=== PATIENT | female | born 1950 | race Caucasian/White ===

== ENCOUNTER 2025-07-14 10:52 | Outpatient (REF) | payer SELFPAY ==
--- OUTSIDE RECORDS SUMMARY | 2024-07-27 11:10 | XMS_ITS | Encounter Summary ---
Author Organization [facility] Address [address] [place] [address] Care Team Providers Care Meat Butcher Name Role Phone Sophy Calix MD Primary Care Provider + [phone] Encounter Details Date Type Department Care Team (Latest Contact Info) Description 07/27/2024 11:10 AM EDT Hospital Encounter TH HISTORIC ENCOUNTERS EASTERN CONVERSION ONLY Onel-Og Peña MD [address] [place] [id number] Leukemia, unspecified not having achieved remission (CMS/HCC V24, CMS/HCC V28) Social History Tobacco Use Types Packs/Day Years Used Date Smoking Tobacco: Never Smokeless Tobacco: Never Alcohol Use Standard Drinks/Week Comments Not Currently 0 (1 standard drink = 0.6 oz pur e alcohol) Interpersonal Safety Answer Date Record ed Physical Abuse 02/17/2025 Verbal Abuse 02/17/2025 Comments Unknown Sex and Gender Information Value Date Recorded Sex Assigned at Not on file Legal Sex Female 10:37 PM EST Gender Identity Not on file Sexual Orientation Not on file documented as of this encounter Plan of Treatment Not on file documented as of this encounter Procedures Procedure Name Priority Date/Time Associated Diagnosis Comments TISSUE EXAM Routine 08/02/2024 12:[address] BX ASP BONE MARROW Routine 07/27/2024 3:18 PM EDT Leukemia, unspecified not having achieved remission (CMS/HCC V24, CMS/HCC V28) documented in this encounter Results * Tissue exam (08/02/2024 12:00 AM EDT) Case Results A-E. Bone Marrow, aspiration, core biopsy, and clot: Mildly hypocellular bone marrow for patient age (10-20% overall cellularity) with maturing myeloid and erythroid precursors, a decreased myeloid:erythroid ratio, adequate numbers of megakaryocytes, and less than 1% blasts in a 300-cell aspirate differential. No discrete population of B lymphoblasts is identified by flow cytometry (low number of cells present for evaluation). See comment. Comment: This is a mildly hypocellular bone marrow with trilineage hematopoiesis and a reduced myeloid:erythroid ratio. Occasional abnormal cells are present (hypogranular and hyposegmented neutrophils, rare binucleated erythroid precursors, and occasional erythroid precursors with nuclear fragmentation) which account for less than 10% of the cells in each lineage. Few blasts are present. Flow cytometry shows virtually no CD19 positive B cells; most of the lymphocytes are T cells without diagnostic phenotypic aberrancy. Approximately 1% CD34 positive blasts are present. No discrete population of B lymphoblasts is identified. It is noted that the number of cells evaluated by flow cytometry is low (less than 5000 cells) which limits the sensitivity of flow cytometric evaluation. Reticulin staining shows no significant increase in reticulin stain fibers fibrosis (MF-0). 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 Although occasional abnormal erythroid and myeloid precursors are present, the morphologic changes (in isolation) are not sufficient to warrant a diagnosis of myeloid myelodysplastic syndrome. Other possible causes for the patient's macrocytic anemia and thrombocytopenia should be considered, including nutritional deficits, medication/toxin effects or other causes. No marrow infiltrative process is identified. Karyotype is pending, addendum to follow. CBC (06/24/2024): WBC 3.9 k/uL, Hemoglobin 10.9 g/dL, Hematocrit 35.1%, MCV 101.7 fL, RDW 15.6%, Platelets 128 k/uL. Differential: Neutrophils: 78.0%, Lymphs: 10.1%, Monos: 9.6%, Eos: 1.3%, Basos: 0.5%, Immature granulocytes: 0.5%. Bone marrow aspirate smear (Montez stain): Specimen quality: Adequate (scattered cellular marrow particles are present) Myeloid:Erythroid ratio: 0.6 (reduced). Myeloid maturation: A complete range of myeloid maturation is present. Rare hypogranular and hyposegmented neutrophils are noted. Erythroid maturation: A complete range of erythroid maturation is present. Few erythroid precursors with nuclear fragmentation and rare binucleated erythroid precursors are present. Megakaryocyte number and morphology: Megakaryocytes appear adequate in number and include a generally normal range of morphologic forms. Iron stain: Adequate storage iron is present (4+/6). Pathologic ring sideroblasts are not identified. Other findings: Scattered pigment containing macrophages are noted. 300 cell Differential count of aspirate: 0.7% Blasts 0.0% Promyelocytes 10.3% Myelocytes/metamyel ocytes 21.3% Neutrophils/bands 2.7% Monocytes 1.7% Eosinophils 0.3% Basophils 7.3% Lymphocytes 0.7% Plasma cells 55.0% Erythroid precursors Microscopic finding of bone marrow biopsy and clot (H and E, PAS): Specimen quality: Core: Small (1.3 cm) and partially crushed clot: Adequate (scattered cellular marrow particles are present Cellularity: Mildly hypocellular for patient age (approximately 10-20% overall cellularity) Myeloid maturation: A complete range of myeloid maturation is identified. No large aggregates of immature mononuclear cells are identified. Erythroid maturation: A complete range of erythroid maturation is identified. A portion of erythroid precursors appears increased. Megakaryocyte number and maturation: Megakaryocytes appear adequate in number and include rare small hypolobated forms (highlighted by PAS stain). Plasma cells: Few plasma cells are identified. No expansile aggregates of plasma cells are seen. Lymphocytes: No discrete lymphoid aggregates are identified. Reticulin stain: There is no significant increase in reticulin stain fibers (MF-0). Other findings: PAS Stain highlights megakaryocytes. Flow Cytometry The overall findings show no discrete population of UZ47-rvgewdzd B cells or plasma cells. Although there are approximately 1% NG73-rrwouywr blasts detected, there is and no discrete population of WW38-kvcdxrlq/CD19- positive lymphoid blasts detected. It is noted that the number of events evaluated is low (less than 5,000 cells per tube), which limits the sensitivity of this assay (i.e., not possible to identify minimal residual disease). Please note that myeloid disorders cannot be reliably excluded by flow cytometry. SPECIMEN: Bone marrow aspirate ([id number]) VIABILITY: 95.9% TOTAL CELL YIELD: 42.3 x10 6 /mL IMMUNOPHENOTYPIC FINDINGS: Lymphocytes are 7.9% of total. -T cells are 7.4% of total (94.3% of cells in lymphocyte gate) with no aberrant phenotype, CD4:CD8= 0.8. -A discrete population of CD19 positive B cells is not identified. -A discrete population of plasma cells is not identified. Granulocytes are 66.0% of total and show generally azure developer immunophenotypic maturation, Monocytic cells are 2.1% of total and show generally azure developer immunophenotypic maturation.. CD45 dim cells are 6.2% of total. CD34+ Blasts are not increased (approximately 1%). No discrete population of AP48-xyugmqwl/CD34- positive blasts is identified (low number of events evaluated). Antibodies (27 markers): CD2, CD3, CD4, CD5, CD7, CD8, CD10, CD11b, CD13, CD14, CD15, CD16, CD19, CD20, CD33, CD34, CD38, CD45, CD56, CD64, CD117, CD123, CD200, HLA-DR, [place], Lambda, TCR gamma-delta. This test was developed and its performance characteristics determined by [facility]. It has not been cleared or approved by U.S. Food and Drug Administration. The FDA does not require this test to go through premarket FDA review. This test is used for clinical purposes. It should not be regarded as investigational or for research. This laboratory is certified under the Clinical Laboratory Improvement Amendments of 1988 (CLIA) as qualified to perform high complexity clinical laboratory testing. Additional Testing (Addendum to follow): Conventional karyotype All special stains were performed with appropriate controls. Diego Warner M.D. , Pathologist (Case electronically signed 08 02 2024) SUPPLEMENTAL REPORT: E. This case was sent to [facility], [address] [facility], [place], [place], (CLIA #[id number]) for Cytogenetics studies. Their diagnosis is as follows: Cytogenetics Oncology Chromosome Analysis Karyotype: 46,XX[20] Interpretation: NORMAL FEMALE KARYOTYPE Cytogenetic analysis shows a normal female karyotype in all cells analyzed. Recommendation: Monitoring by cytogenetics studies is recommended, if clinically indicated. Comments: The clonal abnormalities, observed in a previous specimen, are not observed in the cells analyzed from the current specimen. Please refer to [facility] Results (below). Standard cytogenetic analysis may not detect subtle submicroscopic rearrangements and may not include metaphases from abnormal cell populations with low mitotic rates or present in low levels. Test Detail: Metaphases Counted: 20 Metaphases Analyzed: 20 Metaphases Karyotyped: 2 Culture Type: 24EB, 48EB, ONC Banding Technique: GTG Banding Resolution: 400 Electronic Signature Electronic Signature Dorita Michael M.S., Ph.D., [facility] (CC), [facility] Joby Barr M.D., Hematopathologist [facility]. [facility] (Full report on file) Diego Warner M.D. , Pathologist (Supplemental Report Signed 08 09 2024) Pre-Op/Clinical Diagnosis: *ALL IN REMISSION, COUGH, BACTEREMIA, TUBULAR ADENOMA, HYPOKALEMIA, FATIGUE, CHEMO INDUCED NEUTROPENIA, NAUSEA, NON-SMOKER, ANEMIA, NEOPLASTIC DISEASE, ABNORMAL GAIT, RE-STAGING Specimen and Site: A. MARROW, LEFT ILIAC-BIOPSY B. MARROW CLOT, LEFT ILIAC-ASPIRATION C. MARROW, LEFT ILIAC SLIDES-ASPIRATE D. MARROW FOR FLOW >16 markers, LEFT ILIAC E. MARROW FOR CYTOGENETICS, LEFT ILIAC Gross Description: A. Labeled left iliac bone . Received in formalin is a 1.5 x 0.2 cm hard, braun-red bone core, which is wrapped in paper and submitted in toto in one cassette, one piece, x2, following decalcification in Immun[facility]. B. Labeled left iliac bone marrow clot . Received in formalin is a 0.6 x 0.5 x <0.1 cm aggregate of red grumous tissue/blood, which is wrapped in paper and submitted in toto in one cassette, multiple pieces, x2 (which might fail processing). C. Labeled left iliac bone marrow aspirate smears . Five slides are prepared. One slide subsequently is stained for iron. Two slides are stained with Montez's giemsa. D. Labeled left iliac bone marrow aspirate for flow cytometry . Approximately 3ml of bone marrow aspirate is received in a purple top tube and submitted in toto to [facility], flow cytometry lab, [place], [place], for flow cytometric studies. Gross description only. E. Labeled left iliac bone marrow aspirate for cytogenetics . Approximately 3ml of bone marrow aspirate is received in a purple top tube and approximately 8ml of bone marrow aspirate is received in two green top tubes and submitted in toto to [facility], [place], [place], for cytogenetic studies. Gross description only. TS Physicians: SOPHY CALIX MD/[phone] ESTEVAN WOODS M.D./[id number]/ OG PEÑA MD/ / HISTORICAL TESTING LAB RESULTING AGENCY 08/02/2024 us Laboratory Results Historical MD LAB PATHOLOGY O RDERABLES Final Result HISTORICAL TESTING LAB RESULTING AGENCY * CT BX ASP BONE MARROW (07/27/2024 3:18 PM EDT) Anatomical Region Laterality Modality Computed Tomogra phy 07/27/2024 12:1 4 PM EDT Narrative 07/27/2024 3:18 PM EDT [facility] Diagnostic Imaging Department [address] [place] [id number] Patient: OLIVIA HARLEY /Age/Sex: 1950 - 74 - F Unit#: [id number] Location/Status: [facility] Mnemonic/Ordering Site: [facility] Ordering Physician: OG KAUR MD CT Bx Asp Bone Marrow - 07/27/24 - [id number] Report Status:Signed INDICATION: Leukemia PROCEDURE: Consent obtained for CT guided bone marrow biopsy under conscious sedation. prior relevant studies: PET/CT from July 27, 2024 MEDICATIONS: Local anesthesia: 5 cc of 1% buffered lidocaine administered subcutaneously. 5 cc of 0.25% bupivacaine administered along the periosteum. Sedation: Moderate intravenous sedation was initiated and maintained for 30 minutes while the patient was independently monitored by the radiology nurse under the supervision of the interventional radiologist. A total of 2 mg of Versed and 75 mcg of fentanyl administered during the procedure. Scanner: Soapets [address] Dose reduction technique: AEC (automated exposure control) Dose: total exam DLP 206 mGY per cm TECHNIQUE: Patient placed prone on the CT table and multiple axial images obtained through the pelvis. Appropriate area of the skin was marked, draped and prepped using maximum sterile barrier. Moderate sedation initiated followed by administration of local anesthetic. Under CT fluoroscopic guidance a 11-gauge coaxial needle was advanced into the posterior iliac bone. Bone marrow core biopsy performed followed by bone marrow aspiration. FINDINGS: Initial limited CT images of the pelvis demonstrate adequate percutaneous access into the posterior iliac bone. Images obtained during localization and needle positioning demonstrate coaxial needle positioned within the posterior iliac bone. SPECIMENS: Core sample placed within formalin. Bone marrow aspirate samples placed while within green and purple top tubes. IMPRESSION: CT-guided bone marrow core biopsy as well as bone marrow aspiration biopsy. Dictating Physician: ESTEVAN WOODS MD Electronically Signed by: ESTEVAN WOODS MD Dic Date/Time: 07/27/241516 Sign date/Time: 07/27/24 151 Procedure Note Estevan Woods MD - 08/24/2024 [facility] Diagnostic Imaging Department [address] [place] [address] Patient: OLIVIA HARLEY /Age/Sex: 1950 - 74 - F Unit#: [id number] Location/Status: [facility] Ordering Physician: OG KAUR MD CT Bx Asp Bone Marrow - 07/27/24 - [id number] Report Status:Signed INDICATION: Leukemia PROCEDURE: Consent obtained for CT guided bone marrow biopsy underconscious sedation. prior relevant studies: PET/CT from July 27, 2024 MEDICATIONS: Local anesthesia: 5 cc of 1% buffered lidocaine administeredsubcutaneously. 5 cc of 0.25% bupivacaine administered along the periosteum. Sedation: Moderate intravenous sedation was initiated and maintained for30 minutes while the patient was independently monitored by the radiologynurse under the supervision of the interventional radiologist. A total of 2 mgof Versed and 75 mcg of fentanyl administered during the procedure. Scanner: Soapets [address] Dose reduction technique: AEC (automated exposure control) Dose: total exam DLP 206 mGY per cm TECHNIQUE: Patient placed prone on the CT table and multiple axialimages obtained through the pelvis. Appropriate area of the skin was marked,draped and prepped using maximum sterile barrier. Moderate sedation initiatedfollowed by administration of local anesthetic. Under CT fluoroscopic guidance [id number] coaxial needle was advanced into the posterior iliac bone. Bone marrowcore biopsy performed followed by bone marrow aspiration. FINDINGS: Initial limited CT images of the pelvis demonstrate adequate percutaneous access into the posterior iliac bone. Images obtained during localization and needle positioning demonstratecoaxial needle positioned within the posterior iliac bone. SPECIMENS: Core sample placed within formalin. Bone marrow aspiratesamples placed while within green and purple top tubes. IMPRESSION: CT-guided bone marrow core biopsy as well as bone marrow aspirationbiopsy. Dictating Physician: ESTEVAN WOODS MD Electronically Signed by: ESTEVNA WOODS MD Dic Date/Time: 07/27/24 1517 Sign date/Time: 07/27/241517 Og Acuna MD IMG CT PROCEDURES F inal Result documented in this encounter Visit Diagnoses Diagnosis Leukemia, unspecified not having achieved remission ([facility] V24, [facility] V28) documented in this encounter Additional Health Concerns Infection Onset Date Last Indicated Resolved Time Respiratory Rule-Out 02/16/2025 02/16/2025 025 6:20 PM EDT COVID-19 Rule-Out 02/16/2025 02/16/2025 02/16/2025 6:20 PM EDT COVID-19 Rule-Out 05/09/2025 05/09/2025 05/09/2025 10:26 AM EDT Respiratory Rule-Out 05/09/2025 05/09/2025 025 10:26 AM EDT documented as of this encounter Care Teams Meat Butcher Relationship Specialty Start Date End Date Sophy Calix MD PCP - General 06/29/24 10/25/24 documented as of this encounter
--- OUTSIDE RECORDS SUMMARY | 2024-08-06 14:27 | XMS_ITS | Encounter Summary ---
Author Organization [facility] Address [address] [place] [address] Care Team Providers Care History Faculty Member Name Role Phone Sophy Calix MD Primary Care Provider [phone] Encounter Details Date Type Department Care Team (Late st Contact Info) Description 08/06/2024 2:27 PM EDT Hospital Encounter TH HISTORIC ENCOUNTERS EASTERN CONVERSION ONLY Og Acuna MD [address] [place] [id number] Social History Tobacco Use Types Packs/Day Years [...] on file documented as of this encounter Last Filed Vital Signs Vital Sign Reading Time Taken Comments Blood Pressure 116/66 08/06/2024 2:34 PM EDT Sit ting Left arm Pulse 80 08/06/2024 2:34 PM EDT Temperature - - Respiratory Rate - - Oxygen Saturation - - Inhaled Oxygen Concentration - - Weight 68 kg (150 lb) 08/06/2024 3:09 PM EDT Height 160 cm (5' 3 ) 01/16/2022 11:29 AM EDT Body Mass Index 26.58 07/15/2024 4:35 PM EDT documented in this encounter Progress Notes * Og Acuna MD - 08/06/2024 2:30 PM EDT Images from the original note were not included. Progress Notes by Og Isbell MD at 08/06/2024 2:30 PM Author: Og Isbell MD Service: -- Author Type: Physician Filed: 08/06/2024 3:21 PM Encounter Date: 08/06/2024 Status: Signed Straight Cutter: Og Isbell MD (Physician) CHIEF COMPLAINT: Chief Complaint Patient presents with ? Follow-up Acute lymphoblastic leukemia Late intensification phase completed Maintenance phase completed Mid 2022--recurrent disease-treated at [facility], currently on vincristine and mercaptopurine Methotrexate avoided due to concern for liver disease IDENTIFIER:Olivia Harley is a 74 y.o. female. HPI: The patient returns for follow up of acute lymphoblastic leukemia #8 Patient is accompanied by her Patient is due for cycle #9 of treatment with vincristine. She returns for every 5 week treatment cycles. She had lab work on August 02, reviewed, no neutropenia. Her weight has remained stable. Gait is slow, but without any recent history of falls. Renal function gradually worsening . She continues on spironolactone twice a week. I asked her to resume potassium on days that she is not using spironolactone, she agreed Patient returns after PET CT scan, and bone marrow evaluation. Both of these did not reveal any concern for a LL. Bone marrow was reported as remission marrow. The PET CT scan showed improvement in activity in the femur, thyroid etc. She had a follow-up with Dr. Reyes, and Dr. Smith at [place], advised to continue the current course of management. No changes were recommended PET CT scan-the hip area changes appear to be inflammation After discussion today, decided to hold off carvedilol, due to risk of falls Next treatment-patient wishes to delay it as they are traveling, will plan for September 21Friday per her request Latest set of labs reviewed, copy provided to them Labs requested by Dr. Smith is reviewed and I will send him a copy Bone marrow evaluation completed-no evidence of AL L, reassured Continues on 6-mercaptopurine, and vincristine, denies any significant worsening or neuropathy symptoms mild nausea. Weight loss related to diuresis She had a GI evaluation with Dr. Americo Smith on 12/08/2023. She protein printed notes for me. Hisrecommendation is to avoid use of methotrexate due to long-term side effects of fibrosis, to stop the mercaptopurine due to liver toxicity, and to add carvedilol to obviate the need for endoscopic surveillance of varices from her liver cirrhosis. Holding of carvedilol for now, due to frailty, blood pressure issues, already on [address] Smith request, will send in multiple tests such as ceruloplasmin, alpha-1 antitrypsin, hepatitis profile etc. for concern regarding other causes of liver disease. Patient's lab work is reviewed in detail, copy provided to her Oncology History Overview Note Acute lymphoblastic leukemia Initial diagnosis September [address] 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 CBC showed remarkable pancytopenia with white blood count 900, hemoglobin 9 grams, platelet count 46,000 per cubic mm. Bone marrow examination confirmed TDT positive CD20 negative BCR abl Negative acute lymphoblastic leukemia. The patient was seen By Dr. Reyes at [facility] [place] and declined admission for inpatient therapy.Mrs. Harley was treated with the standard Gr induction regimen beginning on 11/02/2018. Beginning on November 10 through 11/18/2018, Ms. Harley was hospitalized for Escherichia coli bacteremia she received the full Gr program on schedule . Bone marrow examination confirmed MRD positive complete remission with lymphoblasts representing 0.14% of nucleated cell population. ?? 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 Marrow showed MRD Zero. Liver function tests have normalized. Ms. Harley completed the Gr ANIMATOR schedule reasonably well. Currently supposed to be on 6-mercaptopurine and methotrexate. However this has been interrupted due to intolerance ?? Recommendations 1. Doing better right now since stopping 6-mercaptopurine on her own. Took 15 mg of methotrexate 1 day. This was supposed to be day 64 dose. Regimen of methotrexate and mercaptopurine has been interrupted due to cytopenia and intolerance. Patient will be seen in 1 week and depending upon her overall status and counts will plan late intensification start 2. Tentative follow-up visit in 1 week. Patient will follow with . To continue weekly labs. 3. Follow-up visit is made with 4. Patient has already been extensively counseled regarding neutropenic precautions and bleeding possibilities including intracranial bleeding and to seek emergent care if there is a temperature of 100.4 or higher or any large bruises bleeding in the mouth or other orifices. ?? 11/2020- Patient has now completed 2 years of maintenance chemotherapy for a LL. In early October she had lab work performed that showed slight drop in her white cell count, transaminitis and thrombocytopenia. She received 1 dose of Covid vaccine--her daughter was able to book an appointment for her at the [facility], after 26 tries. Patient is due for the next dose in about 3 weeks. 01/2021- She was last seen in clinic about 2 months previously. She continues on periodic lab check. She reports that she is feeling well. No significant fatigue. She is bothered by intermittent low back pain, as well as bilateral knee discomfort. She is awaiting an injection to the left knee for pain relief. Her weight has been fairly stable. She denies any nausea or reflux symptoms. No chills or fevers.No night sweats Patient has been is remains quite anxious and worried about her risk of disease recurrence. Patient request to have the Mediport removed 12/2021- She returns for a 3-month follow-up. In the interim she had episode of UTI. Currently she is experiencing skin changes, and irritation in her inguinal/groin area. She denies any fevers ?? Planning to change PCP 03/2022-She was evaluated about 3 months previously for recurrent UTI. She had managed to avoid COVID infection on the most of her household had it. She reports few weeks of fatigue, and from that sheis now recovering. She is able to do a lot of outdoor work. She had lab work performed a week ago. Has a new PCP appointment coming up Nausea has been an intermittent issue, uses Zofran with good results 03/2023 -- Patient returns after recent hospitalization, and also bone marrow aspiration/biopsy due to concernof myelodysplasia. While awaiting bone marrow study, patient was admitted with E. coli UTI and bacteremia. She recovered quite quickly with IV antibiotics. Currently she reports some fatigue. She maybe dehydrated. She remains active but fatigued quickly. Weight down 3 pounds. Due for lab work today Bone marrow report discussed in detail with the pathologist. This showed mildly hypocellular [id number] to 20% with trilineage hematopoiesis, erythroid hyperplasia. No overt dysplasia. IgH 14 q. 32 FISH analysis negative as well. Discussed with the patient and regarding likely underlying mild myelodysplasia that may be contributing to her anemia and thrombocytopenia. I recommended consideration of Procrit/Retacrit injections as the case may be, 40,000 units every 2 weeks, and holding for hemoglobin level 11 or greater. Patient and agree. There was no evidence of recurrence of leukemia, blasts at 0.5%, she is very relieved to hear that 10/2023 - She was last seen in clinic in May - then readmitted with weakness, and scn showed renal involvement with leukemia.She was transferred to [place] (DR Reyes [facility] ) then she had Gemtuzumab/ venetoclax but had liver issues Treated with Blinotumumab Follows with GI Service No longer candidate for either those nor for transplant REc to start POMP regime -- no MTX due to liver problem Feels weak an dvery sleepy in daytime Awake a tnight No efvers Poor appetite improved with marijuana + nausea Using a wheelchair Due for labs PRognosis reviewed -- if she progresses on POMP then may not have any other treatment Latest labs 11/04 -- Bone marrow -- no leukemia seen in aspiate - final details pending 10/31/23 - pET CT == reviewed Impression 1. ??There is persistent FDG uptake associated with the marrow of the right femoral shaft which is slightly decreased in extent and intensity. 2. ??Increased ascites with moderate anasarca. 3. ??Small left and trace right pleural effusion. 4. ??Decrease in size of left renal subcapsular hematoma. 5. ??Unchanged diffuse mild FDG uptake of the right thyroid lobe. Recommends endocrinology consultation. 6. ??Persistent focal FDG uptake within the right submandibular gland which may represent a benign neoplasm such as Warthin's tumor or pleomorphic adenoma. ROS: GENERAL: No malaise, significant weight loss or fever Weight loss down to 164 lbs Daytime sleep NECK: No lumps, goiter, pain or significant neck swelling RESPIRATORY: No cough, wheezing or shortness of breath CARDIOVASCULAR: No chest pain, leg swelling or palpitations GI: No abdominal discomfort, blood in stools or black stools Poor apetite Persistent nausea, MUSCULOSKELETAL: Knee swelling improved BIlateral leg edema HEMATOLOGY/LYMPHOLOGY No prolonged bleeding, easy bruisability or swollen nodes Other Systems review is non contributory PAST MEDICAL HISTORY: Active Ambulatory Problems Diagnosis Date Noted ? 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 Anemia in neoplastic disease 11/23/2018 ? Nausea 08/06/2019 ? Transaminitis 08/06/2019 ? Gait instability 08/06/2019 ? Oral mucositis 08/19/2019 ? Oral ghazala 08/26/2019 ? Other fatigue 08/26/2019 ? Drug-induced insomnia (HCC) 08/26/2019 ? Chemotherapy-induced neutropenia (HCC) 08/26/2019 ? Hypokalemia 09/02/2019 ? Bilateral leg edema 09/02/2019 ? Acute pain of right knee 02/14/2020 ? Primary insomnia 04/17/2021 ? Tubular adenoma 11/06/2022 ? E coli bacteremia 05/06/2023 ? Myelodysplastic syndrome (HCC) 05/06/2023 ? Hyperbilirubinemia 11/27/2023 ? Subacute cough 06/29/2024 Resolved Ambulatory Problems Diagnosis Date Noted ? No Resolved Ambulatory Problems Past Medical History: Diagnosis Date ? Breast cancer (HCC) SOCIAL HISTORY: Social History Tobacco Use ? Smoking status: Never ? Smokeless tobacco: Never Substance Use Topics ? Alcohol use: Yes Comment: social FAMILY HISTORY: History reviewed. No pertinent family history. Current Outpatient Medications: ? predniSONE (DELTASONE) tablet 20 mg, Take 5 tablets (100 mg total) by mouth daily for 5 days., Disp: 25 tablet, Rfl: 11 ? acyclovir (ZOVIRAX) 400 MG tablet, Take 1 tablet (400 mg total) by mouth 3 (three) times a day., Disp: , Rfl: ? Cholecalciferol 25 MCG (1000 UT) tablet, Daily, Disp: , Rfl: ? Ferrous Sulfate (IRON PO), Take by mouth., Disp: , Rfl: ? furosemide (LASIX) 20 MG tablet, Take 1 tablet (20 mg total) by mouth daily., Disp: , Rfl: ? K PHOS MONO-SOD PHOS DI & MONO PO, Take 250 mg by mouth 2 (two) times a day., Disp: , Rfl: ? Magnesium 500 MG TABS, Take 500 mg by mouth 2 (two) times a day., Disp: , Rfl: ? mercaptopurine (PURINETHOL) 50 MG tablet, Take 1 tablet (50 mg total) by mouth daily, Disp: 30 tablet, Rfl: 11 ? ondansetron (ZOFRAN) 4 MG tablet, Take 1 tablet (4 mg total) by mouth every 8 (eight) hours as needed. for nausea, Disp: 20 tablet, Rfl: 2 ? potassium chloride ER (K-DUR,KLOR-CON) tablet 10 mEq, Take 1 tablet (10 mEq total) by mouth 2 (two) times a day., Disp: , Rfl: ? Pramoxine HCl 1 % LOTN, Apply topically 3 (three) times a day as needed., Disp: , Rfl: ? simethicone (MYLICON) 80 MG chewable tablet, Chew 1-2 tablets (80-160 mg total) by mouth every 6 (six) hours as needed., Disp: , Rfl: ? spironolactone (ALDACTONE) tablet 50 mg, TAKE 1 TABLET BY MOUTH EVERY DAY, Disp: 90 tablet, Rfl: 1 ? ursodiol (ACTIGALL) 300 MG capsule, Take 1 capsule (300 mg total) by mouth 3 (three) times a day., Disp: , Rfl: ? vitamin B-12 (CYANOCOBALAMIN) tablet 1000 mcg, Take 1 tablet (1,000 mcg total) by mouth daily., Disp: , Rfl: You are allergic to the following Date Reviewed: 08/06/2019 Allergen Reactions Latex Itching Erythromycin Not Noted PHYSICAL EXAM: BP 116/66 (BP Location: Left arm) Pulse 80 Temp 98.6 ??F (37 ??C) (Temporal) Wt 68 kg (150 lb) SpO2 99% BMI 26.57 kg/m?? APPEARANCE: Alert and in no acute distress Weight up 2 lbs EYES: PERRL, conjunctiva pink and sclera are with mild icterus ORAL CAVITY: No erythema or exudates NECK: Neck supple, no adenopathy, HEART: RRR, tachy cardic with normal S1 and S2, no murmurs, no gallops, no JVD appreciated LUNG: clear to auscultation bilaterally Percussion note normal LYMPH NODES: No palpable superficial adenopathy ABDOMEN: Bowel sounds normoactive, no bruits, soft, non-tender, without organomegaly or palpable masses EXTREMITIES: Extremities warm and well perfused without clubbing, cyanosis, rash or edema NEURO: Oriented X 3, no focal weakness; sensation is normal Wheelchair use LABS: Lab work, reviewed and interpreted Continue lab work every 2 weeks Labs from [place] 10/31/2023 Labs reviewed from the [facility] system, bilirubin level improved, WBC dropped slightly, no neutropenia. SURGICAL PATHOLOGY REPORT Name: OLIVIA HARLEY Sex: F Service Date: 08/14/22 Hosp#: [id number] Date Reported: 08/15/22 : 1950 Age: 72 MR#: [id number] Physician: PADMAJA GEORGES MD POLYP, ILEOCECAL VALVE-EXCISION: -TUBULAR ADENOMA Bone marrow aspiration/biopsy performed on 05/08/2020 Morphology, fragmented marrow with trilineage hematopoiesis. B ALL MRD, less than 0.01 by flow panel, negative for MRD MRD viability was 88 Cytogenetics evaluation, showed --46XX, and the clonal abnormalities observed in the prior specimens were not observed in the cells here. This showed normal female karyotype. SURGICAL PATHOLOGY REPORT Name: OLIVIA HARLEY Sex: F Service Date: 04/24/23 Hosp#: [id number] Date Reported: 04/30/23 : 1950 Age: 73 A-E. BONE MARROW-ASPIRATION, CORE BIOPSY, AND CLOT: - MILDLY HYPOCELLULAR MARROW WITH ERYTHROID HYPERPLASIA. - NO DEFINITIVE IMMUNOPHENOTYPIC EVIDENCE OF AN ABNORMAL IMMATURE B-CELL POPULATION BY FLOW CYTOMETRY. - SEE COMMENT. Comment: This is a mildly hypocellular marrow (10-20%) with trilineage hematopoiesis, erythroid hyperplasia, and no overt dysplasia or increase in blasts. A routine flow cytometry panel shows no abnormal populations, and a minimal residual disease (MRD) panel is negative for abnormal B lymphoblasts. Immunohistochemistry shows only rare TdT+ cells, consistent with hematogones (normal maturing B cells). Reticulin staining shows no fibrosis (MF-0). 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 The patient's progressive anemia is noted, and there is an erythroid hyperplasia in the core and clot sections without overt dysplasia. The etiology of anemia is unclear. Karyotype and FISH for 14q (IgH) is pending, supplemental to follow. FISH Analysis IgH (14q32) Results: Normal Interpretation: Interpretation Signal Abnormality % cutoff Pattern Identified IgH (14q32) Rearrangement Not Detected 2F None - N/A SURGICAL PATHOLOGY REPORT Name: OLIVIA HARLEY Sex: F Service Date: 07/27/24 Hosp#: [id number] Date Reported: 08/02/24 : 1950 Age: 74 MR#: [id number] Physician: OG ISBELL MD Location: [facility]. Bone Marrow, aspiration, core biopsy, and clot: [...] are consistent with a remission bone marrow. Imaging studies, reviewed and interpreted PET CT Skull to Thighs - 07/27/24 - Report Status:Signed INDICATION: A.L.L. . Outside PET/CT dated October 2023 radiology report reported persistent FDG uptake within the marrow of the right femoral shaft, diffuse mild FDG uptake of the right thyroid lobe,persistent focal FDG uptake within the right submandibular gland. Subsequent treatment strategy. TECHNIQUE: FDG PET-CT imaging was performed from the head through the thighs in a single acquisition with data set reconstructed in axial, coronal, and sagittal planes at the computer workstation with fused data from both the PET imaging study and attenuation correction CT. The CT portion of the examination was done strictly for attenuation correction and is not a true diagnostic CT examination. DLP: 1061 mGy-cm Radiopharmaceutical: 12.9 mCi of F-18 FDG IV. Blood glucose: 112 mg/dl. COMPARISON: Correlation is made with CT of the abdomen and pelvis dated 05/2023. FINDINGS: HEAD AND NECK: Mucosal thickening of the right maxillary sinus SUV Max 3. No FDG avid cervical lymphadenopathy. Focal FDG activity within the right submandibular gland SUV max 3.8 (previously 11.6). Diffuse FDG activity in the right thyroid gland SUV max 4.7 (previously 5.4). THORAX: Sub-5 mm pulmonary nodules without significant FDG activity due to small size measuring up to SUV Max SUV max 0.5. No FDG avid thoracic lymphadenopathy. Trace right-sided pleural effusion without significant FDG activity SUV max 1.8. Asymmetric right-sided pleural thickening located at the level of the right anterior ribs SUV max 1.5. The heart is enlarged with thoracic aortic and coronary artery calcifications. Calcifications diffusely throughout the right breast with diffuse noted in the left breast. Surgical clips in the right axilla and right breast. ABDOMEN/PELVIS: No abnormal FDG activity. Thickening of the left adrenal gland without significant FDG activity SUV max 1.9 (contralateral right adrenal gland SUV max 1.9). Diverticulosis. Nonspecific focal activity in the ascending colon SUV max 5.7. Nonspecific focal FDG activity in the anal canal SUV max 4.0. MUSCULOSKELETAL: Asymmetric focal FDG activity in the right femur SUV Max 2.5 (previously 4.0). No significant bone marrow activity with background bone marrow activity SUV max 2.2. IMPRESSION: 1. Interval decrease in FDG activity of right femur 2. Nonspecific mild FDG activity involving the right thyroid gland slightly decreased from prior. Correlation with prior thyroid ultrasound and endocrinology left is recommended. 3. Interval decrease in FDG activity within the right submandibular gland; nonspecific. 4. Nonspecific mild FDG activity along asymmetric right-sided pleural thickening IMPRESSION: SNOMED CT(R) 1. 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 Anemia in neoplastic disease ANEMIA IN NEOPLASTIC DISEASE 3. Transaminitis ENZYME LEVEL - FINDING 4. Gait instability ABNORMAL GAIT 5. Chemotherapy-induced neutropenia (HCC) NEUTROPENIA DUE TO AND FOLLOWING CHEMOTHERAPY 6. Drug-induced insomnia (HCC) DRUG-INDUCED INSOMNIA 7. Hypokalemia HYPOKALEMIA 8. Bilateral leg edema BILATERAL LOWER LIMB EDEMA 9. Hyperbilirubinemia HYPERBILIRUBINEMIA PLAN: 74 -year-old lady, who was diagnosed with the acute lymphoblastic leukemia in late 2018, and currently in remission after completion of 2 years of therapy #1 acute lymphoblastic leukemia -Dx Oct 2018- completed induction, early and late intensification Completed in September 2020 -- maintenance therapy until the 24 months point from initial diagnosis For recurrent ALL - s/p GEmtuzumab, venetoclax, Blinotumumba with liver issues transaminitis ascites Cycle #1 vincristine was given at 1 Mg dose due to hyperbilirubinemia as it has improved now, will use vincristine 2 Mg today Bilirubin level has improved, continue vincristine 2 Mg for cycle #8 today 6-mercaptopurine 50 mg daily to continue, patient is tolerating well, will monitor closely for any worsening of hyperbilirubinemia, in fact bilirubin level has been improving over the last 4 weeks She has available medication Prednisone 100 Mg daily x 5 doses out of every 28 days, has the prescription--due to delay in recovery of neutropenia for cycle #4, will delay further cycles to q. 35 days Advised to split dose 3 in Am, 2 after lunchtime, okay to continue for the cycles Reviewed dose changed to prednisone again today Cycle #9 due today, Will plan the next cycle at 5-week point, She has a visit planned with GI department at [facility] Next treatment-cycle #10 will be planned in late August per her request due to travel plans She is not receiving any methotrexate at this time--due to concern for hepatotoxicity Restage PET CT and bone marrow In 3 months results are reviewed, no evidence of disease, reassured Delay further cycles, to 5-week point rather than to 4 weeks, due to delays in count recovery Unsure of bone marrow will add much to her case at this time as she is not a candidate for escalation of therapy. --Patient request bone marrow evaluation under sedation, Discussed with Dr. Reyes who agreed with this plan After review of clinical send labs today, okay to continue treatment for now #2 upper GI symptoms, continue PPI, improved #3 anemia neoplastic disease-monitor CBC-D, CMP, LDH Mild, asymptomatic, no transfusions needed Latest Hb stable at 10.9 #5 prior transaminitis, related to initially intense chemotherapy Bilirubin level increased, and it is now improving Liver enzymes have improved-- monitor closely MRI liver/elastography reviewed, partial results available, likely chemotherapy versus fatty liver/alcohol use Ascites--ultrasound abdomen-approximately moderate ascites, however clinically significant improvement on spironolactone -- currenly on twice a week with good results #6 insomnia, zolpidem 10 mg at bedtime, she is not using at this time due to altered sleep-wake cycle #7 intermittent nausea-improved with Zofran #8 elevated creatinine currently improved 1.04,, continue to monitor #9 cachexia-weight loss, has resolved, gained 6 pounds in weight, no edema #10 anxiety-counseled, improved #11 hypokalemia-resolved with potassium supplement, latest is 3.6, I advised her to use the potassium on the days that she is not taking the spironolactone Clinic follow-up in 5 Weeks,--next treatment will be September 21 sooner if new issues arise Await [facility] recovery prior to next treament Pain Control-- no issues now Health Care Proxy-- Og Davenport MD Cc Sophy Calix MD Cc Dr Manuel Reyes [facility] Leukemia program Cc Americo Smith --GI, [facility] documented in this encounter Plan of Treatment Not on file documented as of this encounter Procedures Procedure Name Priority Date/Time Associated Diagnosis Comments HISTORICAL IMAGING SCAN RESULT 08/06/2024 ..MISCELLANEOUS REFERENCE LAB TEST 08/06/2024 documented in this encounter Results * Miscellaneous reference lab test (08/06/2024) us Provider Onbase MD LAB BLOOD ORDERABLES Final Re sult * HISTORICAL IMAGING SCAN RESULT (08/06/2024) Anatomical Region Laterality Modality Ultrasound us Provider Onbase IMG US PROCEDURES Final Resul t documented in this encounter Visit Diagnoses Not on filedocumented in this encounter Additional Health Concerns Infection Onset Date Last Indicated Resolved Time Respiratory Rule-Out 02/16/2025 02/16/2025 025 6:20 PM EDT COVID-19 Rule-Out 02/16/2025 02/16/2025 02/16/2025 6:20 PM EDT COVID-19 Rule-Out 05/09/2025 05/09/2025 05/09/2025 10:26 AM EDT Respiratory Rule-Out 05/09/2025 05/09/2025 025 10:26 AM EDT documented as of this encounter Care Teams History Faculty Member Relationship Specialty Start Date End Date Sophy Calix MD PCP - General 06/29/24 10/25/24 documented as of this encounter
--- OUTSIDE RECORDS SUMMARY | 2024-08-06 14:30 | XMS_ITS | Encounter Summary ---
Author Organization [facility] [place] [address] Care Team Providers Care Park Keeper Name Role Phone Sophy Calix MD Primary Care Provider [phone] Encounter Details Date Type Department Care Team (Late st Contact Info) Description 08/06/2024 2:30 PM EDT Hospital Encounter TH HISTORIC ENCOUNTERS EASTERN CONVERSION ONLY Onel-Og Burnett MD [address] [place] [phone] Social History Tobacco Use Types Packs/Day [...] on file documented as of this encounter Visit Diagnoses Not on filedocumented in this encounter Additional Health Concerns Infection Onset Date Last Indicated Resolved Time Respiratory Rule-Out 02/16/2025 02/16/2025 025 6:20 PM EDT COVID-19 Rule-Out 02/16/2025 02/16/2025 02/16/2025 6:20 PM EDT COVID-19 Rule-Out 05/09/2025 05/09/2025 05/09/2025 10:26 AM EDT Respiratory Rule-Out 05/09/2025 05/09/2025 025 10:26 AM EDT documented as of this encounter Care Teams Park Keeper Relationship Specialty Start Date End Date Sophy Calix MD PCP - General 06/29/24 10/25/24 documented as of this encounter
--- OUTSIDE RECORDS SUMMARY | 2024-08-06 15:00 | XMS_ITS | Encounter Summary ---
Author Organization [facility] Address [address] [place] [address] Care Team Providers Care Log Buncher Name Role Phone Sophy Calix MD Primary Care Provider [phone] Encounter Details Date Type Department Care Team (Latest Contact Info) Description 08/06/2024 3:00 PM EDT Hospital Encounter TH HISTORIC ENCOUNTERS EASTERN CONVERSION ONLY Acute lymphoblastic leukemia, in remission ([facility] V24, [facility] V28) Social History Tobacco Use Types Packs/Day [...] Sign Reading Time Taken Comments Blood Pressure - - Pulse - - Temperature - - Respiratory Rate - - Oxygen Saturation - - Inhaled Oxygen Concentration - - Weight 68 kg (150 lb) 08/06/2024 2:34 PM EDT Height 160 cm (5' 3 ) 01/16/2022 11:29 AM EDT Body Mass Index 26.58 07/15/2024 4:35 PM EDT documented in this encounter Progress Notes * Historical, Notes Results - 08/06/2024 3:00 PM EDT Patient arrives via wheelchair with her after seeing md and states I'm in remission!! 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 Patient states everything is cleared now Offered listening as she shared her journey. PIV started, zofran given for pre-med. Vincristine started, will monitor Patient finished tx without incident. She tells this RN that she is going to [place] in a few weeks and will be pushing out her tx. MD marques. Next appointment made when they return from [place]. Patient will come up after office visit with Trina. PIV removed with pressure dressing. Patient left stable and ambulatory, instructed to call with any questions or concerns. documented in this encounter Plan of Treatment Not on file documented as of this encounter Procedures Procedure Name Priority Date/Time Associated Diagnosis Comments EXTERNAL CLINICAL LAB 08/06/2024 documented in this encounter Results * External clinical lab (08/06/2024) us Provider Onbase LAB BLOOD ORDERABLES Final Re sult documented in this encounter Visit Diagnoses Diagnosis Acute lymphoblastic leukemia, in remission (CMS/HCC V24, CMS/HCC V28) documented in this encounter Additional Health Concerns Infection Onset Date Last Indicated Resolved Time Respiratory Rule-Out 02/16/2025 02/16/2025 025 6:20 PM EDT COVID-19 Rule-Out 02/16/2025 02/16/2025 02/16/2025 6:20 PM EDT COVID-19 Rule-Out 05/09/2025 05/09/2025 05/09/2025 10:26 AM EDT Respiratory Rule-Out 05/09/2025 05/09/2025 025 10:26 AM EDT documented as of this encounter Care Teams Log Buncher Relationship Specialty Start Date End Date Sophy Calix MD PCP - General 06/29/24 10/25/24 documented as of this encounter
--- NOTE | 2025-07-14 12:36 | MHC.AU.HA3 ---
Hearing Instrument Follow-Up- Binaural Date of Visit: 07/14/25 Right Ear: Make, Model, Color, Serial Number: Oticon Own 2 CIC SN: [id number] Color: [place] Lender Repair Warranty: 04/23/2028 [employer] Lender Loss and Damage Warranty: 04/23/[address] [facility] Service Plan: N/A Battery Size: 10 Type of Wax Guard: miniFit Dispensed By: Office of Dr. Ashraf Date of Fitting: April 2025 Left Ear: Make, Model, Color, Serial Number: Oticon Own 2 CIC SN: [id number] Color: [place] [employer] Lender Repair Warranty: 04/23/2028 [employer] Lender Loss and Damage Warranty: 04/23/[address] [facility] Service Plan: N/A Battery Size: 10 Type of Wax Guard: miniFit Dispensed By: Office of Dr. Ashraf Date of Fitting: April 2025 Follow-Up Summary: , José Miguel, brought HAs. Olivia not present, currently inpatient at [facility] with terminal cancer. Recently purchased HAs from [employer] who is now retired. Per , Olivia not hearing well even with HAs. Unsure if related to function of HAs, change in hearing, or changes in brain from cancer. Also questions if she is accidently muting them or changing volume/program via push button. Requested volume of HAs be turned up. Left wax guard partially occluded. Cleaned HAs. Replaced wax guards. Vacuumed microphones. Listening check - right amplifying clearly, left weak; although has asymmetric hearing loss. Connected to [email or web address]. Deleted P2 and P3 at 's request. Disabled push button. Reprogrammed from VAC+ to NAL-NL2 which increased overall gain. However, left still sounded weak. Increased overall volume in left COHEN. Discussed options. chose to try HAs again, see how Olivia responds. If issue persists, he will drop off left COHEN to be sent out for umbrella cutter repair. Recommendations: Hearing instrument follow-up or maintenance as needed. Please contact our clinic with any questions or concerns. Diagnosis Code(s): Primary Diagnosis: H90.A22 SNHL, Unilateral, Left Ear, W/Restricted Contralateral Hearing Secondary Diagnosis: H90.A31 Mixed HL, Unilateral Right Ear, W/Restricted Contralateral Signature: Provider: Rosemary Chairez, [facility]
--- OUTSIDE RECORDS SUMMARY | 2025-07-14 13:00 | XMS_ITS | Encounter Summary ---
Author Organization [facility] Address [address] [facility] [address] [place] [address] Phone Care Team Providers Care Analyst Geochemical Prospecting Name Role Phone Self-Referred, Patient Unavailable Unavailab Jason Gallego MD Unavailable [phone] Soha Clark MD Primary Care Provider Og Acuna MD Unavailable + [phone] Linda Lozoya RN Unavailable [email or web address] Cornelio Dunaway RN Unavailable CORNELIO [email or web address] Encounter Details Date Type Department Care Team (Late st Contact Info) Description 08/11/2024 Transcribe Orders Virtual Department [address] [place] [address] Americo Smith MD [address] [place] [address] [email or web address] Social History Tobacco Use Types Packs/Day Years Used Date Smoking Tobacco: Never Smokeless Tobacco: Never Alcohol Use Standard Drinks/Week Comments Not Asked 1 (1 standard drink = 0.6 oz pur e alcohol) Education Answer Date Recorded Are you interested in more education? Not on tiffani e 02/21/2023 Are you concerned about learning? Not on file 02/21/2023 No 02/21/2023 No 02/21/2023 Digital Access Answer Date Recorded No 03/22/2023 No 03/22/2023 Reliable internet access at home? Not on file 03/22/2023 Device with a working camera? Not on file Intimate Partner Violence Answer Date R ecorded Are you denied basic needs s uch as food, clothing, or medical care? No 09/02/2023 In the past 12 months have y ou been in a relationship with a person who hurts, threatens, or tries to control you? No 09/02/2023 Are you denied basic needs s uch as food, clothing, or medical care? No 09/02/2023 In the past 12 months have y ou been in a relationship with a person who hurts, threatens, or tries to control you? No 09/02/2023 Comments No Sex and Gender Information Value Date Recorded Sex Assigned at Not on file Legal Sex Female 5:48 PM EST Gender Identity Not on file Sexual Orientation Not on file documented as of this encounter Plan of Treatment Not on file documented as of this encounter Visit Diagnoses Not on filedocumented in this encounter Care Teams Analyst Geochemical Prospecting Relationship Specialty Start Date End Date Soha Clark MD [address] [place] [address] PCP - General Internal Medicine 07/29/23 Self-Referred, Patient Referring Physician 10/28/18 Jason Ruiz MD [address] [place] [address] [email or web address] [email or web address] 10/30/18 Og Acuna MD [address] [place] [address] Anthony [email or web address] Internal Medicine 08/25/23 Linda Lozoya RN [address] [place] [address] [email or web address] Associate Infusion Nurse 01/23/24 Cornelio Aleman RN [address] [place] [address] [email or web address] Associate Infusion Nurse 01/23/24 documented as of this encounter Additional Source Comments The information contained in this document represents components of the legal health record. It is not the complete legal health record.[facility]
--- OUTSIDE RECORDS SUMMARY | 2025-07-14 13:00 | XMS_ITS | Clinical Summary ---
Author Organization [facility] Address [address] [place] [address] Care Team Providers Care Wellness Assistant Name Role Phone Sophy Calix MD Primary Care Provider [phone] Allergies Active Allergy Reactions Criticality Noted Date Comments Erythromycin 10/23/2018 Latex Itching Medium 10/30/2018 Sulfamethizole Low 04/15/2024 Medications Medication Sig Dispensed Refills Start Date End Date Status ondansetron (ZOFRAN) 4 MG tablet Take 1 tablet (4 mg total) by mouth every 8 (eight) hours as needed. for nausea 20 tablet 2 11/06/2022 Active acyclovir (ZOVIRAX) 400 MG tablet Take 1 tablet (400 mg total) by mouth 3 (three) times a day. 0 08/25/2023 Active Cholecalciferol 25 MCG (1000 UT) tablet Daily 0 Acti ve furosemide (LASIX) 20 MG tablet Take 1 tablet (20 mg total) by mouth daily. 0 09/15/2023 Active vitamin B-12 (CYANOCOBALAMIN) tablet 1000 mcg Take 1 tablet (1,000 mcg total) by mouth daily. 0 08/19/2023 Active Magnesium 500 MG TABS Take 500 mg by mouth 2 (two) times a day. 0 07/17/2023 Active ursodiol (ACTIGALL) 300 MG capsule Take 1 capsule (300 mg total) by mouth 3 (three) times a day. 0 08/25/2023 Active K PHOS MONO-SOD PHOS DI & MONO PO Take 250 mg by mouth 2 (two) times a day. 0 08/19/2023 Active Ferrous Sulfate (IRON PO) Take by mouth. 0 Active simethicone (MYLICON) 80 MG chewable tablet Chew 1-2 tablets (80-160 mg total) by mouth every 6 (six) hours as needed. 0 09/15/2023 Active Pramoxine HCl 1 % LOTN Apply topically 3 (three) times a day as needed. 0 09/19/2023 Active mercaptopurine (PURINETHOL) 50 MG tablet Take 1 tablet (50 mg total) by mouth daily 30 tablet 11 11/13/2023 Active potassium chloride ER (K-DUR,KLOR-CON) tablet 10 mEq Take 1 tablet (10 mEq total) by mouth 2 (two) times a day. 0 Active spironolactone (ALDACTONE) tablet 50 mg TAKE 1 TABLET BY MOUTH EVERY DAY 90 tablet 1 06/23/2024 Active Active Problems Problem Noted Date Diagnosed Date Subacute cough 06/29/2024 Hyperbilirubinemia 11/27/2023 E coli bacteremia 05/06/2023 Myelodysplastic syndrome 05/06/2023 Tubular adenoma 11/06/2022 Primary insomnia 04/17/2021 Acute pain of right knee 02/14/2020 Hypokalemia 09/02/2019 Bilateral leg edema 09/02/2019 Oral ghazala 08/26/2019 Other fatigue 08/26/2019 Drug-induced insomnia 08/26/2019 Chemotherapy-induced neutropenia 08/26/2019 Oral mucositis 08/19/2019 Nausea 08/06/2019 Transaminitis 08/06/2019 Gait instability 08/06/2019 Acute lymphoblastic leukemia (ALL) in remission 11/23/2018 Anemia in neoplastic disease 11/23/2018 Social History Tobacco Use Types Packs/Day Years Used Date Smoking Tobacco: Never Smokeless Tobacco: Never Alcohol Use Standard Drinks/Week Comments Yes 0 (1 standard drink = 0.6 oz pur e alcohol) social Sex and Gender Information Value Date Recorded Sex Assigned at Female 09/12/2023 4:33 PM EST Gender Identity Not on file Sexual Orientation Not on file Job Start Date Occupation Industry Not on file Not on file Not on file Last Filed Vital Signs Vital Sign Reading Time Taken Comments Blood Pressure 116/66 08/06/2024 3:09 PM EDT Pulse 80 08/06/2024 3:09 PM EDT Temperature 37 C (98.6 F) 08/06/2024 3:09 PM EDT Respiratory Rate 18 08/06/2024 3:09 PM EDT Oxygen Saturation 99% 08/06/2024 3:09 PM EDT Inhaled Oxygen Concentration - - Weight 68 kg (150 lb) 08/06/2024 3:09 PM EDT Height 160 cm (5' 3 ) 01/16/2022 11:29 AM EDT Body Mass Index 26.57 01/16/2022 11:29 AM EDT Plan of Treatment Health Maintenance Due Date Last Done Comments Depression Screening 1962 BMI Counseling 01/23/1968 Preventative Health Evaluation 01/23/1968 DTap / Tdap / Td (1 - Tdap) 1969 Colon Cancer Screening (Colonoscopy) 1995 Fall Risk Assessment 2015 Osteoporosis Screening (DEXA Scan) 2015 COVID-19 Vaccine (2 - Pfizer risk series) 08/05/2021 07/15/2021 RSV Adult > 60+ Yrs or (1 - 1-dose 75+ series) 2025 Influenza Vaccine (#1) 2025 07/16/2023 Pneumococcal Vaccine Completed 05/17/2022, 10/02/2006 Shingrix-Zoster Vaccine Completed 08/22/20, 04/07/2022 Hepatitis C Screening Completed 06/28/2023 Hepatitis B Vaccines Aged Out No long er eligible based on patient's age to complete this topic RSV Ped < 20 months Aged Out No longe r eligible based on patient's age to complete this topic Care Teams Wellness Assistant Relationship Specialty Start Date End Date Sophy Calxi MD [address] [place] [phone] PCP - General Internal Medicine 06/29/24
--- OUTSIDE RECORDS SUMMARY | 2025-07-14 13:00 | XMS_ITS | Encounter Summary ---
Author Organization [facility] Address [address] [facility] [address] [place] [address] Phone Care Team Providers Care Yarn Worker Name Role Phone Self-Referred, Patient Unavailable Unavailab Sandra Arceo MD Primary Care Provider Jason Ruiz MD Unavailable [phone] Soha Clark MD Primary Care Provider Og Acuna MD Unavailable [phone] Linda Lozoya RN Unavailable [email or web address] Sabine Dunaway RN Unavailable SABINE [email or web address] Encounter Details Date Type Department Care Team (Late st Contact Info) Description 06/28/2023 Procedure Pass [facility] Echocardiography [address] [place] [address] Social History Tobacco Use Types Packs/Day Years [...] with a working camera? Not on file Comments Unknown Sex and Gender Information Value Date Recorded Sex Assigned at Not on file Legal Sex Female 5:48 PM EST Gender Identity Not on file Sexual Orientation Not on file documented as of this encounter Functional Status * Calculated C-SSRS Risk Score (Lifetime/Recent) Answer Date of Assessment Author No Risk Indicated 06/28/2023 9:55 PM EDT Nette Thomas RN * [place] Suicide Severity Rating Scale (Screener/Recent Self-Report) Question Answer Date of Assessment Author 1. Wish to be (Past 1 Month) No 023 9:55 PM EDT Luci Thomas RN 2. Non-Specific Active Suici denis Thoughts (Past 1 Month) No 06/28/2023 9:55 PM EDT Luci Thomas RN 6. Suicidal Behavior (Lifetime) No 3 9:55 PM BRYSONT Luci Thomas RN documented as of this encounter Plan of Treatment Not on file documented as of this encounter Visit Diagnoses Not on filedocumented in this encounter Care Teams Yarn Worker Relationship Specialty Start Date End Date Sandra Oh MD [address] [place] [address] PCP - General Internal Medicine 10/30/18 07/28/23 Soha Clark MD [address] [place] [phone] PCP - General Internal Medicine 07/29/23 Self-Referred, Patient Referring Physician 10/28/18 Jason Ruiz MD [address] [place] [phone] [email or web address] 10/30/18 Og Acuna MD [address] [place] [phone] Anthony [email or web address] Internal Medicine 08/25/23 Linda Lozoya, RN [address] [place] [address] [email or web address] Associate Infusion Nurse 01/23/24 Sabine Aleman, LEEANN [address] [place] [phone] [email or web address] Associate Infusion Nurse 01/23/24 documented as of this encounter Additional Source Comments The information contained in this document represents components of the legal health record. It is not the complete legal health record.[facility]
--- OUTSIDE RECORDS SUMMARY | 2025-07-14 13:00 | XMS_ITS | Encounter Summary ---
Author Organization [facility] Address [address] [place] [address] Care Team Providers Care Dealmaker Name Role Phone Sophy Calix MD Primary Care Provider [phone] Encounter Details Date Type Department Care Team (Late st Contact Info) Description 05/21/2025 Lab Requisition [facility] - Main Lab [address] [facility] [place] [address] Sabine Tello PA [address] [place] [address] Encounter for other general examination Social History Tobacco Use Types Packs/Day Years [...] Procedure Name Priority Date/Time Associated Diagnosis Comments CORTISOL Routine 05/21/2025 12:00 PM EDT Encounter for other general examination AMMONIA Routine 05/21/2025 12:00 PM EDT Encounter for other general examination documented in this encounter Results * Cortisol (05/21/2025 12:00 PM EDT) Cortisol 11.1 mcg/dL LAB CHEMISTRY METHOD 05/22/2025 10:54 AM EDT [facility] Blood Venous blood specimen / Unknown Venipuncture / Unknown 05/21/2025 12:00 PM EDT 05/21/2025 12:44 PM EDT Narrative [facility] - 05/22/2025 10:54 AM EDT CORTISOL REFERENCE RANGE 8 AM SPEC: 5.0-23.0 mcg/dL 4 PM SPEC: 3.0-16.0 mcg/dL 8 PM SPEC: <5.0 mcg/dL us Sabine DAVIS LAB BLOOD ORDERABLES Final Re sult Performing Organization Address City/[facility]/ZIP Co de Phone Number [facility] [address] [place] [address], [place] [phone] * Ammonia (05/21/2025 12:00 PM EDT) Ammonia 17 11 - 35 mcmol/L LAB CHEMISTRY METHOD 05/21/2025 1:19 PM EDT [facility] Blood Venous blood specimen / Unknown Venipuncture / Unknown 05/21/2025 12:00 PM EDT 05/21/2025 12:44 PM EDT us Sabine DAVIS LAB BLOOD ORDERABLES Final Re sult [facility] [address] [place] [address], [place] [phone] documented in this encounter Visit Diagnoses Diagnosis Encounter for other general examination documented in this encounter Care Teams Dealmaker Relationship Specialty Start Date End Date Sophy Calix MD [address] [place] [address] PCP - General Internal Medicine 11/18/24 documented as of this encounter
--- OUTSIDE RECORDS SUMMARY | 2025-07-14 13:00 | XMS_ITS | Encounter Summary ---
Author Organization [facility] Address [address] [place] [address] Phone Care Team Providers Care Senior International Tax Manager Name Role Phone Self-Referred, Patient Unavailable Unavailab Jason Gallego MD Unavailable [phone] Soha Clark MD Primary Care Provider [phone] Og Acuna MD Unavailable [phone] Linda Lozoya RN Unavailable [email or web address] Sabine Dunaway RN Unavailable [email or web address] Encounter Details Date Type Department Care Team (Late st Contact Info) Description 08/11/2024 Ancillary Orders [facility] [address] [facility] [place] [address] Americo Smith MD [address] [place] [address] [email or web address] Cirrhosis of liver with ascites, unspecified hepatic cirrhosis type (Primary Dx) Social History Tobacco Use Types Packs/Day Years [...] on file documented as of this encounter Results * US LIVER ELASTOGRAPHY ONLY (08/11/2024 10:05 AM EDT) Anatomical Region Laterality Modality Abdomen Ultrasound 08/11/2024 11:3 3 AM EDT Impressions 08/11/2024 11:48 AM EDT No focal hepatic lesion visualized, limiting the right hepatic lobe is largely obscured. The tissue wave speed interquartile range to median ratio is less than 15%, therefore the measure of liver stiffness is acceptable. Median Young's modulus of 10.4 kPa consistent with Metavir (F3) Severe fibrosis. The is an elevated median Young's modulus present indicating moderate/severe fibrosis. The median Young's modulus is above the Mild-Moderate threshold level of 9.40 kPa. US LI-RADS Visualization Score: Moderate limitations which may obscure small (<10 mm) observations. VIS-C US LI-RADS Category: No US evidence of HCC. US-1, Negative. RECOMMENDATION: Repeat US within 3 months x 1 OR consider alternative surveillance modality. NOTE: LI-RADS US (Liver Imaging Reporting and Data System, Ultrasound) terminology has been used in this report, LI-RADS is a system of standardized terminology and criteria to assist in the interpretation and reporting of imaging examinations of the liver in patients with cirrhosis or other risk factors for developing hepatocellular carcinoma (HCC). LI-RADS US can be applied for Ultrasound screening and surveillance of high risk populations. Enhanced CT or MRI should be used as the diagnostic test for liver lesions in high risk patients, but can also be used for screening or surveillance in select patients. LI-RADS categories are based only on imaging features and, therefore should be interpreted in the context of all other available clinical data and biomarkers. A clinically significant result was initiated on 08/11/2024 11:48 AM, Message ID [id number]. Narrative 08/11/2024 11:48 AM EDT US ABDOMEN COMPLETE (ADULT), US LIVER ELASTOGRAPHY ONLY Referring clinician's provided indication for this examination in Epic: Cirrhosis; Liver disease, chronic, HCC screening; Patient with suspected cirrhosis, screening for hepatocellular carcinoma TECHNIQUE: Abdominal Ultrasound Complete. Serial longitudinal and transverse real time grayscale images, were acquired through the abdomen utilizing a curved array transducer. Color Doppler images were used assess vascularity. COMPARISON: MRI ABDOMEN (LIVER) WITH AND WITHOUT CONTRAST FINDINGS: Exam is degraded by body habitus bowel gas. Liver: Coarsened echogenicity. No focal hepatic lesion visualized, limiting the right hepatic lobe is largely obscured. Portal vein is patent with normally directed flow. Elastography examination: Interquartile range to median ratio: 10%. Median Young's modulus of 10.4 kPa in the right hepatic lobe. Gallbladder: No gallstones or gallbladder wall thickening. Asbestos Shingle Roofer reports a negative sonographic Coon sign. Biliary: No intrahepatic or extrahepatic biliary ductal dilation. The common bile duct measures 2 mm. Pancreas: Incompletely seen. Spleen: No splenomegaly. Measures 11.3 cm. Right Kidney: No shadowing stones or hydronephrosis. Left Kidney: No shadowing stones or hydronephrosis. Aorta: Normal, where visualized sonographically. Inferior vena cava: Patent intrahepatic segment. No upper abdominal free fluid. Procedure Note Vita Dupont MD - 08/11/2024 US ABDOMEN COMPLETE (ADULT), US LIVER ELASTOGRAPHY ONLY Referring clinician's provided indication for this examination in Epic:Cirrhosis; Liver disease, chronic, HCC screening; Patient with suspectedcirrhosis, screening for hepatocellular carcinoma TECHNIQUE: Abdominal Ultrasound Complete. Serial longitudinal andtransverse real time grayscale images, were acquired through the abdomenutilizing a curved array transducer. Color Doppler images were usedassess vascularity. COMPARISON: MRI ABDOMEN (LIVER) WITH AND WITHOUT CONTRAST FINDINGS: Exam is degraded by body habitus bowel gas. Liver: Coarsened echogenicity. No focal hepatic lesion visualized,limiting the right hepatic lobe is largely obscured. Portal vein ispatent with normally directed flow. Elastography examination: Interquartile range to median ratio: 10%. Median Young's modulus of 10.4 kPa in the right hepatic lobe. Gallbladder: No gallstones or gallbladder wall thickening. Asbestos Shingle Roofer reports a negative sonographic Coon sign. Biliary: No intrahepatic or extrahepatic biliary ductal dilation. The common bile duct measures 2 mm. Pancreas: Incompletely seen. Spleen: No splenomegaly. Measures 11.3 cm. Right Kidney: No shadowing stones or hydronephrosis. Left Kidney: No shadowing stones or hydronephrosis. Aorta: Normal, where visualized sonographically. Inferior vena cava: Patent intrahepatic segment. No upper abdominal free fluid. IMPRESSION: No focal hepatic lesion visualized, limiting the right hepatic lobe islargely obscured. The tissue wave speed interquartile range to median ratio is less than15%, therefore the measure of liver stiffness is acceptable. Median Young's modulus of 10.4 kPa consistent with Metavir (F3) Severefibrosis. The is an elevated median Young's modulus present indicatingmoderate/severe fibrosis. The median Young's modulus is above theMild-Moderate threshold level of 9.40 kPa. US LI-RADS Visualization Score: Moderate limitations which may obscuresmall (<10 mm) observations. VIS-C US LI-RADS Category: No US evidence of HCC. US-1, Negative. RECOMMENDATION: Repeat US within 3 months x 1 OR consider alternative surveillancemodality. NOTE: LI-RADS US (Liver Imaging Reporting and Data System, Ultrasound)terminology has been used in this report, LI-RADS is a system ofstandardized terminology and criteria to assist in the interpretation andreporting of imaging examinations of the liver in patients with cirrhosisor other risk factors for developing hepatocellular carcinoma (HCC).LI-RADS US can be applied for Ultrasound screening and surveillance ofhigh risk populations. Enhanced CT or MRI should be used as thediagnostic test for liver lesions in high risk patients, but can also beused for screening or surveillance in select patients. LI-RADS categoriesare based only on imaging features and, therefore should be interpreted inthe context of all other available clinical data and biomarkers. A clinically significant result was initiated on 08/11/2024 11:48 AM,Message ID [id number]. us Americo Smith MD [facility] [place] Final Result documented in this encounter Visit Diagnoses Diagnosis Cirrhosis of liver with ascites, unspecified hepatic cirrhosis type- Primary Cirrhosis of liver with ascites, unspecified hepatic cirrhosis type documented in this encounter Care Teams Senior International Tax Manager Relationship Specialty Start Date End Date Soha Clark MD [address] [place] [address] PCP - General Internal Medicine 07/29/23 Self-Referred, Patient Referring Physician 10/28/18 Jason Ruiz MD [address] [place] [address] [email or web address] 10/30/18 Og Acuna MD [address] [place] [id number] Anthony [email or web address] Internal Medicine 08/25/23 Linda Lozoya RN [address] [place] [phone] [email or web address] Associate Infusion Nurse 01/23/24 Sabine Aleman, LEEANN [address] [place] [id number] [email or web address] Associate Infusion Nurse 01/23/24 documented as of this encounter Additional Source Comments The information contained in this document represents components of the legal health record. It is not the complete legal health record.[facility]
--- OUTSIDE RECORDS SUMMARY | 2025-07-14 13:00 | XMS_ITS | Encounter Summary ---
Author Organization [facility] Address [address] [place] [address] Phone Care Team Providers Care Crop And Soil Technician Name Role Phone Self-Referred, Patient Unavailable Unavailab Jason Gallego MD Unavailable [phone] Soha Clark MD Primary Care Provider Og Acuna MD Unavailable [phone] Linda Lozoya RN Unavailable [email or web address] Sabine Dunaway RN Unavailable 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 Wish to be (Past 1 Month) No 08/05/2023 6:27 PM EDT Iliana De Los Santos RN 2. Non-Specific Active Suici denis Thoughts (Past 1 Month) No 08/05/2023 6:27 PM EDT Jeanne De Los Santos RN 6. Suicidal Behavior (Lifetime) No 6:27 PM EDT Iliana De Los Santos RN documented as of this encounter Plan of Treatment Not on file documented as of this encounter Results * US ABDOMEN COMPLETE (ADULT) (08/05/2023 4:46 PM EDT) Anatomical Region Laterality Modality Abdomen Ultrasound Other 08/05/2023 4:50 PM EDT Impressions 08/05/2023 4:55 PM EDT 1. Nodularity of the liver surface contour with coarse echotexture, may represent cirrhosis. 2. Echogenic bilateral renal parenchymal, suggestive of chronic medical renal disease. 3. Redemonstrated left renal subcapsular hematoma. 4. Small volume abdominopelvic ascites. Narrative 08/05/2023 4:55 PM EDT US ABDOMEN COMPLETE (ADULT) TECHNIQUE: Abdominal Ultrasound Complete. COMPARISON: PET/CT 07/29/2023 FINDINGS: Liver: Mildly coarsened echotexture with slight nodularity of the contour. No focal lesion. Main Portal Vein: Patent with normal direction of flow. Gallbladder: No gallstones or gallbladder wall thickening. Coon's Sign: Biliary: Normal. No intrahepatic or extrahepatic biliary ductal dilatation. The common bile duct measures 2 mm. Pancreas: Incompletely visualized. Spleen: Normal. No splenomegaly. Kidneys: Markedly echogenic bilateral renal parenchyma. No hydronephrosis. Redemonstrated left subcapsular hematoma, as seen on recent PET/CT. Aorta: Normal, where visualized sonographically. IVC: Normal intrahepatic segment. Small volume abdominopelvic ascites. Procedure Note Mere Allen MD - 08/05/2023 US ABDOMEN COMPLETE (ADULT) TECHNIQUE: Abdominal Ultrasound Complete. COMPARISON: PET/CT 07/29/2023 FINDINGS: Liver: Mildly coarsened echotexture with slight nodularity of the contour.No focal lesion. Main Portal Vein: Patent with normal direction of flow. Gallbladder: No gallstones or gallbladder wall thickening. Coon's Sign: Biliary: Normal. No intrahepatic or extrahepatic biliary ductaldilatation. The common bile duct measures 2 mm. Pancreas: Incompletely visualized. Spleen: Normal. No splenomegaly. Kidneys: Markedly echogenic bilateral renal parenchyma. No hydronephrosis.Redemonstrated left subcapsular hematoma, as seen on recent PET/CT. Aorta: Normal, where visualized sonographically. IVC: Normal intrahepatic segment. Small volume abdominopelvic ascites. IMPRESSION: 1. Nodularity of the liver surface contour with coarse echotexture, mayrepresent cirrhosis. 2. Echogenic bilateral renal parenchymal, suggestive of chronic medicalrenal disease. 3. Redemonstrated left renal subcapsular hematoma. 4. Small volume abdominopelvic ascites. 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 Acute lymphoid leukemia, in relapse documented in this encounter Care Teams Crop And Soil Technician Relationship Specialty Start Date End Date Soha Clark MD [address] [place] [address] PCP - General Internal Medicine 07/29/23 Self-Referred, Patient Referring Physician 10/28/18 Jason Ruiz MD [address] [place] [address] [email or web address] 10/30/18 Og Acuna MD [address] [place] [address] Anthony [email or web address] Internal Medicine 08/25/23 Linda Lozoya, RN [address] [place] [phone] [email or web address] Associate Infusion Nurse 01/23/24 Sabine Aleman, RN [address] [place] [address] [email or web address] Associate Infusion Nurse 01/23/24 documented as of this encounter Additional Source Comments The information contained in this document represents components of the legal health record. It is not the complete legal health record.[facility]
--- OUTSIDE RECORDS SUMMARY | 2025-07-14 13:00 | XMS_ITS | Encounter Summary ---
Author Organization [facility] Address [address] [place] [address] Phone Care Team Providers Care Tissue Packer Name Role Phone Self-Referred, Patient Unavailable Unavailab Jason Gallego MD Unavailable [phone] Soha Clark MD Primary Care Provider Og Acuna MD Unavailable [phone] Linda Lozoya RN Unavailable Uri [email or web address] Cornelio Dunaway RN Unavailable [email or web address] Encounter Details Date Type Department Care Team (Late st Contact Info) Description 10/31/2023 Procedure Pass [facility] MR Imaging, [place] [address] [place] [address] Social History Tobacco Use Types Packs/Day Years [...] on filedocumented in this encounter Care Teams Tissue Packer Relationship Specialty Start Date End Date Soha Clark MD [address] [place] [address] PCP - General Internal Medicine 07/29/23 Self-Referred, Patient Referring Physician 10/28/18 Jason Ruiz MD [address] [place], [place] [email or web address] 10/30/18 Og Acuna MD [address] [place] [address] Anthony [email or web address] Internal Medicine 08/25/23 Linda Lozoya, LEEANN [address] [place] [address] [email or web address] Associate Infusion Nurse 01/23/24 Cornelio Aleman, LEEANN [address] [place] [phone] [email or web address] Associate Infusion Nurse 01/23/24 documented as of this encounter Additional Source Comments The information contained in this document represents components of the legal health record. It is not the complete legal health record.[facility]
--- OUTSIDE RECORDS SUMMARY | 2025-07-14 13:00 | XMS_ITS | Encounter Summary ---
Author Organization [facility] Address [address] [place] [address] Care Team Providers Care Static Balancer Name Role Phone Sophy Calix MD Primary Care Provider [phone] Encounter Details Date Type Department Care Team (Late st Contact Info) Description 05/19/2025 Lab Requisition [facility] - Main Lab [address] [place] [address] Felipe Blount PA [address] [place] [address] Encounter for other general examination Social History [...] Procedure Name Priority Date/Time Associated Diagnosis Comments CBC WITH AUTO DIFFERENTIAL Routine 05/19/2025 5:13 AM EDT Encounter for other general examination CBC AND DIFFERENTIAL Routine 05/19/2025 5:13 AM EDT Encounter for other general examination MAGNESIUM Routine 05/19/2025 5:13 AM EDT Encounter for other general examination COMPREHENSIVE METABOLIC PANEL Routine 05/19/2025 5:13 AM EDT Encounter for other general examination documented in this encounter Results * (ABNORMAL) CBC auto differential (05/19/2025 5:13 AM EDT) [facility] WBC 4.2(L) 4.8 - 10.8 K/mcL LAB HEMETOLOGY METHOD 05/19/2025 7:41 AM [facility] RBC 3.60(L) 3.80 - 4.80 M/mcL LAB HEMETOLOGY METHOD 05/19/2025 7:41 AM [facility] Hemoglobin 11.3(L) 11.5 - 16.0 g/dL LAB HEMETOLOGY METHOD 05/19/2025 7:41 AM [facility] LAB Hematocrit 34.5(L) 35.0 - 47.0 % LAB HEMETOLOGY METHOD 05/19/2025 7:41 AM [facility] MCV 95.0 79.0 - 98.0 FL LAB HEMETOLOGY METHOD 05/19/2025 7:41 AM [facility] MCH 31.1 27.0 - 32.0 pcg LAB HEMETOLOGY METHOD 05/19/2025 7:41 AM [facility] LAB MCHC 32.8 32.0 - 37.0 g/dL LAB HEMETOLOGY METHOD 05/19/2025 7:41 AM [facility] RDW 17.7(H) 11.0 - 15.0 % LAB HEMETOLOGY METHOD 05/19/2025 7:41 AM [facility] Platelets 143 130 - 400 K/mcL LAB HEMETOLOGY METHOD 05/19/2025 7:41 AM [facility] MPV 10.5 7.0 - 11.0 FL LAB HEMETOLOGY METHOD 05/19/2025 7:41 AM [facility] NRBC 0.0 <1.0 % LAB HEMETOLOGY METHOD 05/19/2025 7:41 AM [facility] NRBC Absolute 0.00 <0.10 K/mcL LAB HEMETOLOGY METHOD 05/19/2025 7:41 AM [facility] Neutrophils Relative 76.4 % LAB HEMETOLOGY METHOD 05/19/2025 7:41 AM [facility] Lymphocytes Relative 9.2 % LAB HEMETOLOGY METHOD 05/19/2025 7:41 AM [facility] Monocytes Relative 12.3 % LAB HEMETOLOGY METHOD 05/19/2025 7:41 AM [facility] Eosinophils Relative 0.7 % LAB HEMETOLOGY METHOD 05/19/2025 7:41 AM [facility] Basophils Relative 0.2 % LAB HEMETOLOGY METHOD 05/19/2025 7:41 AM [facility] Immature Granulocytes Relative 1.2 % LAB HEMETOLOGY METHOD 05/19/2025 7:41 AM [facility] Neutrophils Absolute 3.17 1.50 - 7.00 K/mcL LAB HEMETOLOGY METHOD 05/19/2025 7:41 AM [facility] Lymphocytes Absolute 0.38(L) 1.00 - 5.00 K/mcL LAB HEMETOLOGY METHOD 05/19/2025 7:41 AM [facility] Monocytes Absolute 0.51 0.20 - 1.00 K/mcL LAB HEMETOLOGY METHOD 05/19/2025 7:41 AM [facility] Eosinophils Absolute 0.03 0.00 - 0.50 K/mcL LAB HEMETOLOGY METHOD 05/19/2025 7:41 AM [facility] Basophils Absolute 0.01 0.00 - 0.20 K/mcL LAB HEMETOLOGY METHOD 05/19/2025 7:41 AM EDT [facility] Immature Granulocytes Absolute 0.05(H) 0.00 - 0.03 K/mcL LAB HEMETOLOGY METHOD 05/19/2025 7:41 AM EDT [facility] Blood Venous blood specimen / Unknown Venipuncture / Unknown 05/19/2025 5:13 AM EDT 05/19/2025 7:10 AM EDT Felipe DAVIS LAB BLOOD ORDERABLES Final R esult [facility] [address] [place] [address], [place] [phone] * Magnesium (05/19/2025 5:13 AM EDT) Magnesium 2.0 1.9 - 2.6 mg/dL LAB CHEMISTRY METHOD 05/19/2025 8:04 AM EDT [facility] Blood Venous blood specimen / Unknown Venipuncture / Unknown 05/19/2025 5:13 AM EDT 05/19/2025 7:10 AM EDT Felipe DAVIS LAB BLOOD ORDERABLES Final R esult [facility] [address] [place] [address], [place] [phone] * (ABNORMAL) Comprehensive metabolic panel (05/19/2025 5:13 AM EDT) Sodium 138 133 - 145 mmol/L LAB CHEMISTRY METHOD 05/19/2025 8:04 AM EDT [facility] Potassium 4.2 3.5 - 5.5 mmol/L LAB CHEMISTRY METHOD 05/19/2025 8:04 AM EDT [facility] Chloride 107 96 - 110 mmol/L LAB CHEMISTRY METHOD 05/19/2025 8:04 AM [facility] CO2 23 21 - 32 mmol/L LAB CHEMISTRY METHOD 05/19/2025 8:04 AM [facility] Anion Gap 8 3 - 11 LAB CHEMISTRY METHOD 05/19/2025 8:04 AM [facility] Glucose 83 70 - 100 mg/dL LAB CHEMISTRY METHOD 05/19/2025 8:04 AM [facility] BUN 11 5 - 25 mg/dL LAB CHEMISTRY METHOD 05/19/2025 8:04 AM [facility] Creatinine 1.14(H) 0.50 - 1.10 mg/dL LAB CHEMISTRY METHOD 05/19/2025 8:04 AM [facility] eGFR 50(L) >=60 mL/min/1. 73m2 LAB CHEMISTRY METHOD 05/19/2025 8:04 AM [facility] Comment:Calculation based on the Chronic Kidney Disease Epidemiology Collaboration (CKD-EPI) equation refit without adjustment for race. BUN/Creatinine Ratio 9.6 LAB CHEMISTRY METHOD 05/19/2025 8:04 AM [facility] Calcium 9.1 8.5 - 10.5 mg/dL LAB CHEMISTRY METHOD 05/19/2025 8:04 AM [facility] AST (SGOT) 14 10 - 42 unit/L LAB CHEMISTRY METHOD 05/19/2025 8:04 AM [facility] ALT (SGPT) 21 10 - 60 unit/L LAB CHEMISTRY METHOD 05/19/2025 8:04 AM [facility] Alkaline Phosphatase 50 42 - 121 unit/L LAB CHEMISTRY METHOD 05/19/2025 8:04 AM [facility] Total Protein 5.6(L) 6.0 - 8.0 g/dL LAB CHEMISTRY METHOD 05/19/2025 8:04 AM [facility] Albumin 3.4 3.2 - 5.0 g/dL LAB CHEMISTRY METHOD 05/19/2025 8:04 AM EDT [facility] Total Bilirubin 0.8 0.0 - 1.4 mg/dL LAB CHEMISTRY METHOD 05/19/2025 8:04 AM EDT [facility] Blood Venous blood specimen / Unknown Venipuncture / Unknown 05/19/2025 5:13 AM EDT 05/19/2025 7:10 AM EDT us Felipe DAVIS LAB BLOOD ORDERABLES Final R esult [facility] [address] [place] [address], documented in this encounter Visit Diagnoses Diagnosis Encounter for other general examination documented in this encounter Care Teams Static Balancer Relationship Specialty Start Date End Date Sophy Calix MD [address] [place] [address] PCP - General Internal Medicine 11/18/24 documented as of this encounter
--- OUTSIDE RECORDS SUMMARY | 2025-07-14 13:00 | XMS_ITS | Encounter Summary ---
Author Organization [facility] Address [address] [place] [address] Care Team Providers Care Wire Steward Name Role Phone Sophy Calix MD Primary Care Provider [phone] Encounter Details Date Type Department Care Team (Late st Contact Info) Description 05/13/2025 Lab Requisition [facility] Main Lab [address] [facility] [place] [address] Sabine Tello PA [address] [place] [id number] Encounter for other general examination Social History [...] Procedure Name Priority Date/Time Associated Diagnosis Comments COMPLETE BLOOD COUNT Routine 05/13/2025 5:58 AM EDT Encounter for other general examination COMPREHENSIVE METABOLIC PANEL Routine 05/13/2025 5:58 AM EDT Encounter for other general examination documented in this encounter Results * (ABNORMAL) Comprehensive metabolic panel (05/13/2025 5:58 AM EDT) Sodium 138 133 - 145 mmol/L LAB CHEMISTRY METHOD 05/13/2025 12:11 PM [facility] Potassium 3.6 3.5 - 5.5 mmol/L LAB CHEMISTRY METHOD 05/13/2025 12:11 PM [facility] Chloride 107 96 - 110 mmol/L LAB CHEMISTRY METHOD 05/13/2025 12:11 PM [facility] CO2 22 21 - 32 mmol/L LAB CHEMISTRY METHOD 05/13/2025 12:11 PM [facility] Anion Gap 9 3 - 11 LAB CHEMISTRY METHOD 05/13/2025 12:11 PM [facility] Glucose 69(L) 70 - 100 mg/dL LAB CHEMISTRY METHOD 05/13/2025 12:11 PM [facility] BUN 22 5 - 25 mg/dL LAB CHEMISTRY METHOD 05/13/2025 12:11 PM [facility] Creatinine 1.26(H) 0.50 - 1.10 mg/dL LAB CHEMISTRY METHOD 05/13/2025 12:11 PM [facility] eGFR 45(L) >=60 mL/min/1. 73m2 LAB CHEMISTRY METHOD 05/13/2025 12:11 PM [facility] Comment:Calculation based on the Chronic Kidney Disease Epidemiology Collaboration (CKD-EPI) equation refit without adjustment for race. BUN/Creatinine Ratio 17.5 LAB CHEMISTRY METHOD 05/13/2025 12:11 PM [facility] Calcium 8.8 8.5 - 10.5 mg/dL LAB CHEMISTRY METHOD 05/13/2025 12:11 PM [facility] AST (SGOT) 26 10 - 42 unit/L LAB CHEMISTRY METHOD 05/13/2025 12:11 PM [facility] ALT (SGPT) 32 10 - 60 unit/L LAB CHEMISTRY METHOD 05/13/2025 12:11 PM [facility] Alkaline Phosphatase 50 42 - 121 unit/L LAB CHEMISTRY METHOD 05/13/2025 12:11 PM EDT [facility] Total Protein 5.5(L) 6.0 - 8.0 g/dL LAB CHEMISTRY METHOD 05/13/2025 12:11 PM EDT [facility] Albumin 3.4 3.2 - 5.0 g/dL LAB CHEMISTRY METHOD 05/13/2025 12:11 PM EDT [facility] Total Bilirubin 0.9 0.0 - 1.4 mg/dL LAB CHEMISTRY METHOD 05/13/2025 12:11 PM EDT [facility] Blood Venous blood specimen / Unknown Venipuncture / Unknown 05/13/2025 5:58 AM EDT 05/13/2025 10:24 AM EDT Sabine DAVIS LAB BLOOD ORDERABLES Final Re sult [facility] [address] [place] [address], * (ABNORMAL) Complete blood count (05/13/2025 5:58 AM EDT) WBC 5.1 4.8 - 10.8 K/mcL LAB HEMETOLOGY METHOD 05/13/2025 11:33 AM EDT [facility] RBC 3.90 3.80 - 4.80 M/mcL LAB HEMETOLOGY METHOD 05/13/2025 11:33 AM EDT [facility] Hemoglobin 11.8 11.5 - 16.0 g/dL LAB HEMETOLOGY METHOD 05/13/2025 11:33 AM EDT [facility] Hematocrit 36.2 35.0 - 47.0 % LAB HEMETOLOGY METHOD 05/13/2025 11:33 AM EDT [facility] MCV 93.1 79.0 - 98.0 FL LAB HEMETOLOGY METHOD 05/13/2025 11:33 AM EDT [facility] MCH 30.3 27.0 - 32.0 pcg LAB HEMETOLOGY METHOD 05/13/2025 11:33 AM EDT [facility] MCHC 32.6 32.0 - 37.0 g/dL LAB HEMETOLOGY METHOD 05/13/2025 11:33 AM EDT [facility] RDW 16.9(H) 11.0 - 15.0 % LAB HEMETOLOGY METHOD 05/13/2025 11:33 AM EDT [facility] Platelets 168 130 - 400 K/mcL LAB HEMETOLOGY METHOD 05/13/2025 11:33 AM T [facility] MPV 9.9 7.0 - 11.0 FL LAB HEMETOLOGY METHOD 05/13/2025 11:33 AM EDT [facility] NRBC 0.6 <1.0 % LAB HEMETOLOGY METHOD 05/13/2025 11:33 AM T [facility] NRBC Absolute 0.03 <0.10 K/mcL LAB HEMETOLOGY METHOD 05/13/2025 11:33 AM [facility] Blood Venous blood specimen / Unknown Venipuncture / Unknown 05/13/2025 5:58 AM EDT 05/13/2025 10:24 AM EDT us Sabine DAVIS LAB BLOOD ORDERABLES Final Re sult [facility] [address] [place] [address], documented in this encounter Visit Diagnoses Diagnosis Encounter for other general examination documented in this encounter Care Teams Wire Steward Relationship Specialty Start Date End Date Sophy Calix MD [address] [place] [id number] PCP - General Internal Medicine 11/18/24 documented as of this encounter
--- OUTSIDE RECORDS SUMMARY | 2025-07-14 13:00 | XMS_ITS | Clinical Summary ---
Author Organization [facility] Facility Address [address] [address] Care Team Providers Care Group Social Worker Name Role Phone Soha Johnston MD Primary Care Provider [phone] Social History Tobacco Use Types Packs/Day Years Used Date Smoking Tobacco: Never Assessed Comments Unknown Sex and Gender Information Value Date Recorded Sex Assigned at Not on file Legal Sex Female 9:54 AM EDT Gender Identity Not on file Sexual Orientation Not on file Plan of Treatment Health Maintenance Due Date Last Done Comments Breast Cancer Screening 1950 Colorectal Cancer Screening: Annual FOBT 1999 Colorectal Cancer Screening: Colonoscopy 1999 Colorectal Cancer Screening: Sigmoidoscopy 1999 Pneumococcal Vaccine: 50+ Ye ars (2 of 2 - PCV) 10/02/2007 10/02/2006 Influenza Vaccine (#1) 2025 Hepatitis B Vaccine Aged Out No longe r eligible based on patient's age to complete this topic Insurance Medicare [facility] Medicare [facility] Care Teams Group Social Worker Relationship Specialty Start Date End Date Soha Johnston MD [address] [place] [address], [address] [place] [id number] PCP - General Internal Medicine 06/25/23
--- OUTSIDE RECORDS SUMMARY | 2025-07-14 13:00 | XMS_ITS ---
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) Treatment Medications Current Day (Day 1 , Cycle 10 - Planned for 09/10/2024) Next Day (Day 1, Cycle 11 - Planned for 10/15/2024) ondansetron (ZOFRAN-ODT)sodium chloride (NS) 0.9 %vinCRIStine (ONCOVIN) chemo infusion ondansetron (ZOFRAN-ODT) disintegrating tablet 8 mgsodium chloride 0.9% (NS) infusionvinCRIStine (ONCOVIN) 2 mg in sodium chloride (NS) 0.9 % 50 mL chemo infusion ondansetron (ZOFRAN-ODT) disintegrating tablet 8 mgsodium chloride 0.9% (NS) infusionvinCRIStine (ONCOVIN) 2 mg in sodium chloride (NS) 0.9 % 50 mL chemo infusion Past Plans ONCOLOGY INFUSION THERAPY Plan Name Start Date Discontinue Date Treatment Medications Discontinue Reason Plan Provider [facility] EPOETIN LOGAN-EPBX (RETACRIT, EPOGEN) 05/12/2023 07/12/2024 epoetin alpha-epbx (RETACRIT) Therapy Complete SubOg Almanza MD Radiation Treatments * No radiation treatments are documented for this patient in [facility]. Treatments may have been administered in another system.
--- OUTSIDE RECORDS SUMMARY | 2025-07-14 13:00 | XMS_ITS | Encounter Summary ---
Author Organization [facility] Address [address] [place] [address] Phone Care Team Providers Care Rapid Transit Operator Name Role Phone Self-Referred, Patient Unavailable Unavailab Jason Gallego MD Unavailable [phone] Soha Clark MD Primary Care Provider Og Acuna MD Unavailable [phone] Linda Lozoya RN Unavailable [email or web address] RN Unavailable [email or web address] Encounter Details Date Type Department Care Team (Late st Contact Info) Description 09/04/2023 Procedure Pass [facility] Radiology [address] [place] [address] Social History Tobacco Use Types Packs/Day Years [...] tries to control you? No 09/02/2023 Comments Unknown Sex and Gender Information Value Date Recorded Sex Assigned at Not on file Legal Sex Female 5:48 PM EST Gender Identity Not on file Sexual Orientation Not on file documented as of this encounter Plan of Treatment Not on file documented as of this encounter Visit Diagnoses Not on filedocumented in this encounter Care Teams Rapid Transit Operator Relationship Specialty Start Date End Date Soha Clark MD [address] [place] [address] PCP - General Internal Medicine 07/29/23 Self-Referred, Patient Referring Physician 10/28/18 Jason Ruiz MD [address] [place], [place] [email or web address] 10/30/18 Og Acuna MD [address] [place] [address] [email or web address] Internal Medicine 08/25/23 Linda Lozoya, LEEANN [address] [place] [phone] [email or web address] Infusion Nurse 01/23/24 Cornelio Aleman, LEEANN [address] [place] [phone] [email or web address] Associate Infusion Nurse 01/23/24 documented as of this encounter Additional Source Comments The information contained in this document represents components of the legal health record. It is not the complete legal health record.[facility]
--- OUTSIDE RECORDS SUMMARY | 2025-07-14 13:01 | XMS_ITS ---
Author Name [facility] Organization Unknown Care Team Organization Name Specialty Phone Email Start Date End Da te [facility] Og Acuna Primary Care 09/03/2022 06/14/2024
--- OUTSIDE RECORDS SUMMARY | 2025-07-14 13:01 | XMS_ITS ---
Author Organization [facility] Address [address] [place] [address] Phone Care Team Providers Care Surveillance Officer Name Role Phone Sophy Calix MD Primary Care Provider [phone] Active Problems Problem Noted Date Diagnosed Date Metabolic acidosis with incr eased anion gap and reduced excretion of inorganic acids 02/23/2025 Pneumonia 02/16/2025 Primary localized osteoarthrosis of ankle and fo ot 10/25/2024 Abnormal liver enzymes 12/06/2023 Cirrhosis of liver with ascites ([facility] V24, CM S/[facility] V28) 12/06/2023 Pancytopenia ([facility] V24, [facility] V28) 08/05/20 Ascites 08/05/2023 Hyperbilirubinemia 08/05/2023 Myelodysplastic syndrome ([facility] V24, [facility] V 28) 05/06/2023 Tubular adenoma 11/06/2022 Bilateral leg edema 09/02/2019 Chemotherapy-induced neutropenia ([facility] V24) 1 Drug-induced insomnia ([facility] V24, [facility] V28) 08/26/2019 Gait instability 08/06/2019 Acute lymphoblastic leukemia (ALL) in remission ([facility] V24, [facility] V28) 11/23/2018 Anemia in neoplastic disease 11/23/2018 Current Oncology Plans Gr Regimen ( CALGB 8811 ) - Course V Prolonged Maintenance - VinCRIStine / PredniSONE / Methotrexate / Mercaptopurine -- 9 NINE cy completed 08/22* Plan Start Date:11/12/2023 Plan Provider:Og Acuna MD Linked Problems Acute lymphoblastic leukemia (ALL) in remission (CMS/HCC V24, CMS/HCC V28) Treatment Medications Current Day (Day 1 , Cycle 17 - Planned for 06/08/2025) Next Day (Day 1, Cycle 18 - Planned for 07/13/2025) vinCRIStine (ONCOVIN)vinCRIStine (ONCOVIN) chemo IVPB (2 mg/2 mL vial) vinCRIStine (ONCOVIN) 2 mg in sodium chloride 52 mL chemo IVPB vinCRIStine (ONCOVIN) 2 mg in sodium chloride 52 mL chemo IVPB Past Plans No past plan information found. Radiation Treatments * No radiation treatments are documented for this patient in [facility]. Treatments may have been administered in another system.
--- OUTSIDE RECORDS SUMMARY | 2025-07-14 13:01 | XMS_ITS | Clinical Summary ---
Author Organization Formerly [facility] Address [address] [facility] [address] [place] [address] Phone Care Team Providers Care Manager Of Financial Reporting Name Role Phone Self-Referred, Patient Unavailable Unavailab Jason Gallego MD Unavailable [phone] Soha Clark MD Primary Care Provider Og Acuna MD Unavailable + [phone] Linda Lozoya RN Unavailable [email or web address] Dunaway RN Unavailable [email or web address] Allergies Active Allergy Reactions Criticality Noted Date Comments Erythromycin GI Upset Medium 10/30/2018 Latex Itching Medium 10/30/2018 Medications cholecalciferol (VITAMIN D3) 1,000 unit tablet Take 1,000 Units by mouth daily. Active cyanocobalamin, vitamin B-12, 1000 MCG tablet Take 1,000 mcg by mouth daily. Active mercaptopurine (PURINETHOL) 50 mg tablet Take 50 mg by mouth daily. Active spironolactone (ALDACTONE) 50 MG tablet Take 1 tablet (50 mg total) by mouth 2 (two) times a week. 4 Active neomycin-bacitr acin zinc-polymyxin B (TRIPLE ANTIBIOTIC) ointment Apply topically 2 (two) times a day. Active ondansetron (ZOFRAN) 4 MG tablet TAKE 1-2 TABLETS BY MOUTH EVERY 8 HOURS NEEDED FOR NAUSEA. 30 tablet 6 4 Active ondansetron (ZOFRAN) 4 MG tablet Take 1-2 tablets (4-8 mg total) by mouth every 8 (eight) hours as needed for nausea. 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 Last fever 09/15 PM. Neutropenic. On Cefepime/Vanc. Spiked to 101.1 on 09/15PM, pancultured. Asx. Per patient she did not know she was having a fever, found on routine vitals check. Discontinued Doxy, started empiric Cefepime (febrile neutropenia, possible SBP coverage) and IV Vanc (for SSTI at para site, now discontinued per THELMA weathers). Denies respiratory sx. -- Continue cefepime, transition to po 09/19 if remains afebrile with negative cultures Antimicrobials: Doxycycline 09/14- 09/15 for SSTI at para site coverage. 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 UA with 1+ LE, 1+ bacteria, UCx >100k units of urogenital gail. Defer treatment with nonspecific urine culture and without suprapubic pain, fever, discomfort with urination. 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 Worsened last admission while diuresing for ascites, US without hydronephrosis. -- Avoid nephrotoxins and renally dose meds as able #HTN Hold home amlodipine 5mg daily for hypotension iso ascites and diuresis. Will continue to hold at discharge. #Breast and uterine cancer S/p PITER/BSO and lumpectomy/chemo >10 years ago. Assessment & Plan (08/11/2023 12:19 PM EDT): SECONDARY #HTN Continue home on amlodipine 10mg, with hold parameters. #Insomnia Continue zolpidem as needed. #Breast cancer S/p lumpectomy/chemo >10y ago. #Uterine cancer S/p PITER/BSO. #GERD Continue home PPI Ascites 08/05/2023 Assessment & Plan (09/18/2023 9:54 AM EST): ACTIVE PET/CT 07/29 showed new small ascites. Admitted from clinic 08/11 w/distension, ascites, weight gain, RUQ tenderness and hyperbilirubinemia (Tbili 2.0/Dbili 1.0). Given proximity to Inotuzumab there was c/f VOD, however US showed slow flow without reversal and Bili not high enough to support dx. US did show nodular liver contour and liver MRI morphology suggested chronic liver disease. Fibroscan unsuccessful. Dx paracentesis w/high SAAG and low protein c/f portal HTN, cytology negative. Hepatology consulted and suspected baseline [id number] liver injury exacerbated by Inotuzomab vs nodular regenerative hyperplasia which would require outpatient work-up to differentiate (elastography vs liver bx). Diuresis initiated with lasix. Was admitted for blina but developed worsening ascites and volume overload with treatment. Hepatology re-consulted, suggested adding spironolactone + lasix. S/p para 09/05/23 c/b persistent large volume (~3L) drainage from prior para site which improved w/pressure dressing and llying on contralateral side. Per primary onc will defer further paracenteses unless symptomatic. Last received albumin 50g on 09/16. Surgery placed suture 09/16 to buttermaker helper in paracentesis site drainage. -- Discontinued ppx Doxy (09/14-09/15) for SSTI near prior R sided para site iso broad spectrum abx as in #febrile neutropenia. -- Attempted to obtain fluid culture and SBP labs but minimal drainage 09/16; f/up culture swab (but suspect will be skin gail) -- Surgery placed suture at leaking paracentesis site 09/16, monocryl and covered with dermabond (suture is absorbable - inner will dissolve, outer should come off with dermabond) - if dermabond gone and wound healed ok to remove suture if still there -- Lasix 20mg PO daily and Spironolactone 50mg PO daily (on hold given pancytopenia) -- Goal TBB even to -500cc, 1.5L fluid restriction -- Continue Actigall prophylaxis Assessment & Plan (08/11/2023 12:19 PM EDT): ACTIVE Noted to have abdominal ascites on interim PET-CT 07/29, then in clinic 08/05 for chemo found to have abd distension, RUQ tenderness, and mixed hyperbilirubinemia (2.0/1.0) all c/f VOD from Inotuzumab. RUQUS in clinic with nodular liver c/f cirrhosis and small volume ascites. No reports of EtoH abuse or liver disease in history. Hyperbili improving since 08/06 without intervention, lowering suspicion for VOD. Abdominal U/S 08/06 did not show reversal of flow and repeat 08/07 showed slow flow through portal vein which can be seen with portal HTN. Consulted hepatology who felt presentation could be acute exacerbation of NAFLD in setting of prior fatty liver disease and chemo (such as Dexter). Diagnostic para 08/08 showed SAAG >1.1, protein <2.5, consistent with portal hypertension. No evidence of SBP. Bili remains mildly elevated and synthetic function preserved. Initiated gentle diuresis per Hepatology c/b mild HENRIQUE. -- GI following, recs appreciated -- tylenol x1 for general mild R sided discomfort 08/11 -- Volume: Continue Lasix 20mg PO daily, goal ~5lb weight loss in a week -- Infection: no evidence of SBP -- Bleeding: no known varices -- Encephalopathy: no concerns -- Screening: Hep b not immune Jun 2023, Hep C neg, no masses on US -- Update outpatient team / study PI as able to ensure AEs are reported -- If VOD found start defibrotide, defer for now as not clearly VOD and labs are not severe Pancytopenia 08/05/2023 Assessment & Plan (09/17/2023 9:51 AM EST): SECONDARY More leukopenic and thrombocytopenic since 09/10. Neutropenic since 09/14. Received 5days of Blina (09/05-), unclear if pancytopenia is related. There are new atypical lymphs on diff, peripheral flow 09/15 with too few cells to analyze. Will hold on any growth factor. -- Transfuse for Hct <21% and Plt <10k -- twice weekly labs outpt Assessment & Plan (08/11/2023 12:19 PM EDT): SECONDARY In setting of disease and recent chemo. Counts appear to be improving since 08/07. 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 Relapsed in May 2023 with florid extramedullary disease notably including bilateral kidneys (biopsy-proven) and extraosseous sites in spine with epidural extension at level of T7. Completed protocol 21 induction with Dexter/Jose and achieved MRD- CR on BMBx; PET/CT showed near CR of extramedullary disease. LPs with IT chemo without SCUTCHER TENDER disease (LP w/ IT on 09/03/23). Post Dexter developed new #ascites and was taken off study. Negative VOD work-up. Admitted to initiate Blinatumomab consolidation. Received IVCI Blinatumomab 9mcg/day with Dex 20mg IV prior to D1. Unfortunately due to worsening ascites, anasarca and c/f falling albumin, primary onc made decision to stop blina on 09/10 and readdress next line of treatment as outpatient. Primary Oncologist: Dr. Manuel Reyes -- Discharge home with PT and VNA when able -- Continue acyclovir prophylaxis, no additional at discharge per primary -- Zofran PRN -- Twice weekly lab checks locally. 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 Relapsed May 2023 with florid extramedullary disease notably including bilateral kidneys (biopsy- proven) and extraosseous sites in spine with epidural extension at level of T7. Started on protocol 21- with Inotuzumab (days 1,7,15) and Venetoclax (days 1-21). Completed Induction (07/07 3d Jose lead-in, 07/10 induction; last dose Dexter 07/23, last dose Jose 07/28) with repeat BMBx showing remission, LP negative for disease, PET-CT with significant improvement in bony lesions and kidneys, but new abdominal ascites. Presented for consolidation, but admitted with ascites, hyperbilirubinemia, abdominal distension c/f VOD r/t Inotuzumab (see #ascites). Primary oncologist: Dr Manuel Reyes Study PI: Dr Ce Neves -- Hold further chemo for now - may discharge to rehab and then consider blinatumomab at follow up -- continue ACV - renally dose reduced to 400mg bid from tid per pharmacy -- continue Actigall ppx -- Continue home Vit D3, B12 -- Zofran PRN nausea Examination prior to chemotherapy 06/28/2023 Resolved Problems Problem Noted Date Diagnosed Date Resolved Date Dysuria 09/10/2023 09/10/2023 Assessment & Plan (09/10/2023 3:49 PM EST): RESOLVED In setting of dysuria 09/09, UA showed 3+ leuk esterase and UCx showed 10,000 to <50,000 CFUs mixed gail. Symptoms resolved as of 09/10. Given transient nature of dysuria and lack of definitive urinary pathogen, deferred treating as UTI but will consider if develops recurrent symptoms. Hypoxia 09/05/2023 09/10/2023 Assessment & Plan (09/10/2023 3:23 PM EST): RESOLVED New desaturation to 87% on 09/03 requiring up to 4L NC while sleeping, weaned to 1-2L when awake. Asymptomatic. CXR 09/04 showed R basilar atelectasis r/t elevated hemidiaphragm, likely due to large ascites. MRI Liver 09/04 showed bilateral pleural effusions and worsening ascites. Suspect hypoxia related to atelectasis secondary to large volume ascites. Has been on RA since 09/07. FTT (failure to thrive) in adult 08/06/2023 08/06/2023 Elevated serum creatinine 08/05/2023 Assessment & Plan (08/11/2023 12:19 PM EDT): ACTIVE Known renal involvement of #B-ALL confirmed on biopsy. Recent Cr baseline ~1.3 since June 2023. Creat has fluctuated since admission 1.1-1.5. Urine lytes c/w pre renal, UA bland with Urine culture growing mixed gail, renal U/S 08/11 with chronic kidney disease changes. -- Monitor Cr closely, especially with starting lasix -- Strict I/O, avoid nephrotoxins, renally dose meds for Crcl ~45-50 ALL (acute lymphoblastic leukemia of ) 9 08/26/2023 Immunizations Immunization Administration Dates Next Due Influenza High-Dose Quadrivalent Preservative Fr ee IM 07/16/2023 Family History Medical History Relation Comments Heart disease Father Heart disease Mother Relation Status Comments Brother Alive Father (Age 58) Mother (Age 83) Social History Tobacco Use Types Packs/Day Years Used Date Smoking Tobacco: Never Smokeless Tobacco: Never Tobacco Cessation:Counseling Given: Not Answered Alcohol Use Standard Drinks/Week Comments Not Asked [...] on file Sexual Orientation Not on file Last Filed Vital Signs Vital Sign Reading Time Taken Comments Blood Pressure 150/75 03/02/2024 2:42 PM EDT Pulse 89 03/02/2024 2:42 PM EDT Temperature 36.6 C (97.9 F) 03/02/2024 2:42 PM EDT Respiratory Rate 16 03/02/2024 11:33 AM EDT Oxygen Saturation 96% 03/02/2024 11:35 AM EDT Inhaled Oxygen Concentration - - Weight 75.5 kg (166 lb 7.2 oz) 03/02/2024 9:00 A M EDT Height 159.3 cm (5' 2.72 ) 10/31/2023 10:[address] Body Mass Index 29.75 10/31/2023 10:33 AM EST Plan of Treatment Health Maintenance Due Date Last Done Comments LIPID PANEL 1950 DEPRESSION SCREENING 1962 COLOGUARD 1995 COLONOSCOPY 1995 COLORECTAL CANCER SCREENING 1995 FIT TEST 1995 FOBT 1995 SIGMOIDOSCOPY 1995 VIRTUAL COLONOSCOPY 1995 OSTEOPOROSIS SCREENING INITIAL (ONE-TIME) 2015 INFLUENZA VACCINE (#1) 2025 , 07/16/2023, 07/05/2022, Additional history exists COVID-19 VACCINE ( season) 2025 06/24/2024, 07/05/2022, 02/14/2022, Additional history exists POTASSIUM LEVEL 08/11/2025 08/11/2024, 05/0 04/2024, 10/31/2023, Additional history exists Adult Td,Tdap Booster 06/06/2032 06/06/2022, 018 PNEUMOCOCCAL VACCINES (50+ years) Completed 05/17/2022, 07/21/2016 ZOSTER VACCINES Completed 08/22/2022, 03/27, 03/16/2016 HEPATITIS C SCREENING Completed 06/28/2023 RSV VACCINE Completed 05/30/2024 SMOKING STATUS SCREENING (Once After 26 Yrs) Completed 08/30/2024 HIB VACCINES Aged Out No longer eligi ble based on patient's age to complete this topic MENINGOCOCCAL VACCINES (ACWY) Aged Out No longer eligible based on patient's age to complete this topic MENINGOCOCCAL VACCINES (B) Aged Out N o longer eligible based on patient's age to complete this topic Medical Devices Not on file Procedures Procedure Name Priority Date/Time Associated Diagnosis Comments OUTSIDE LAB 05/18/2025 OUTSIDE PROCEDURE 05/17/2025 OUTSIDE PROCEDURE 05/15/2025 OUTSIDE IMAGING 05/14/2025 OUTSIDE IMAGING 05/13/2025 OUTSIDE IMAGING 05/13/2025 BASIC METABOLIC PANEL Routine 08/11/2024 10:14 AM EDT Cirrhosis of liver with ascites, unspecified hepatic cirrhosis type HEPATITIS C ANTIBODY, QUALITATIVE Routine 06/28/2023 10:36 PM EDT from Last 3 Months or Most Recently Relevant to Health Maintenance Results * Outside Lab (05/18/2025) us Scanning Interface Provider LAB BLOOD ORDERABLES Final Result * Outside Procedure (05/17/2025) us Scanning Interface Provider PROCEDURE/MINOR SURG ICAL PERFORMABLES Final Result * Outside Procedure (05/15/2025) us Scanning Interface Provider PROCEDURE/MINOR SURG ICAL PERFORMABLES Final Result * Outside Imaging Report Only (05/14/2025) us Scanning Interface Provider IMG XR CHEST Shannan l Result * Outside Imaging Report Only (05/13/2025) us Scanning Interface Provider IMG XR CHEST Shannan l Result * Outside Imaging Report Only (05/13/2025) us Scanning Interface Provider IMG XR CHEST Shannan l Result * (ABNORMAL) Basic metabolic panel (08/11/2024 10:14 AM EDT) SODIUM 141 133 - 146 mmol/L [facility] CHLORIDE 102 96 - 108 mmol/L [facility] POTASSIUM 3.6 3.3 - 5.1 mmol/L [facility] CO2 27 21 - 35 mmol/L [facility] BUN 37(H) 6 - 19 mg/dL [facility] CREATININE 1.30 0.5 - 1.5 mg/dL [facility] GLUCOSE 88 70 - 99 mg/dL [facility] CALCIUM 9.0 8.4 - 10.3 mg/dL [facility] EGFR 43(L) >59 mL/min/1.7 3m2 [facility] Comment:Estimated glomerular filtration rate calculated using the CKD-EPI refit equation. ANION GAP 16 10 - 20 mmol/L [facility] Blood 08/11/2024 10:1 4 AM EDT 08/11/2024 10:20 AM EDT us Americo Smith MD LAB BLOOD ORDERABLES Final R esult [facility] [address] [place] [address] * Hepatitis C antibody, qualitative (06/28/2023 10:36 PM EDT) HCV Nonreactive Nonreactive [facility] Comment: Blood 06/28/2023 10:3 6 PM EDT 06/28/2023 10:57 PM EDT Comment:#OHDT AND PTH ADDED AT 11:35PM PER [id number] us Ce Neves MD LAB BLOOD ORDERABLES Final R esult [facility] [address] [place] [id number] from Last 3 Months or Most Recently Relevant to Health Maintenance Insurance MED[place] PART A & [place] [id number] [facility] [employer] MEDICARE SUPPLEMENT MEDICARE PART A & B [employer] MED[employer] SUPPLEMENT MEDICARE PART A & B [employer] MEDICARE SUPPLEMENT MEDICARE PART A & B [employer] MEDICARE SUPPLEMENT MEDICARE PART A & B [employer] MEDICARE SUPPLEMENT MEDICARE PART A & B [facility] MEDICARE SUPPLEMENT MEDICARE PART A & B [facility] [employer] MEDICARE SUPPLEMENT MEDICARE PART A & B Member Subscriber Plan / Payer ( fective 2014-Present) Name:Olivia Harley Member ID:[id number] Relation to Subscriber:Self Name:Olivia Harley Subscriber ID:[id number] Payer ID:[id number] Group ID:Not on file Type:Medicare Address: [employer] [address] [place] [id number] [facility] [employer] MEDICARE SUPPLEMENT MEDICARE PART A & B [facility] [employer] MEDICARE SUPPLEMENT Advance Directives For more information, please contact: [phone] (9AM - 5PM [facility], Friday-Friday) Documents on File Type Date Recorded Patient Brass Cleaner Expl anation Serious Illness Care 11/28/2023 5:36 AM Serious Illness Care 11/26/2023 8:55 AM Serious Illness Care 11/19/2023 10:23 AM Serious Illness Care 10/02/2023 1:02 PM Healthcare Proxy 08/15/2023 3:12 PM * Full Code (Latest Code Status on File) Date Activated Date Inactivated Comments 09/02/2023 6:51 PM Question Answer Comments Code Status Confirmed With: Patient Code Discussion Comments: with RYAN Jauregui * Full Code Date Activated Date Inactivated Comments 08/05/2023 9:38 PM 09/02/2023 6:51 PM Question Answer Comments Code Status Confirmed With: Patient * Full Code Date Activated Date Inactivated Comments 06/28/2023 8:21 PM 08/05/2023 9:38 PM Question Answer Comments Code Status Confirmed With: Patient Care Teams Manager Of Financial Reporting Relationship Specialty Start Date End Date Soha Clark MD [address] [place] [phone] PCP - General Internal Medicine 07/29/23 Self-Referred, Patient Referring Physician 10/28/18 Jason Ruiz MD [address] [place] [address] [email or web address] Medical Oncology 10/30/18 Og Acuna MD [address] [place] [address] Anthony [email or web address] Internal Medicine 08/25/23 Linda Lozoya RN [address] [place] [id number] [email or web address] Infusion Nurse 01/23/24 Sabine Aleman, LEEANN [address] [place] [id number] [email or web address] Infusion Nurse 01/23/24 Additional Source Comments The information contained in this document represents components of the legal health record. It is not the complete legal health record.Formerly [facility]
--- OUTSIDE RECORDS SUMMARY | 2025-07-14 13:01 | XMS_ITS | Encounter Summary ---
Author Organization Formerly [facility] Address [address] [place] [id number] Care Team Providers Care Central Sterile Technician Name Role Phone Spohy Calix MD Primary Care Provider [phone] Encounter Details Date Type Department Care Team Description 05/21/2019 Nurse Only [facility] Oncology Services [address] [place] [address] Ebony Gonzalez RN Social History Tobacco Use Types Packs/Day Years [...] file Not on file Not on file documented as of this encounter Plan of Treatment Not on file documented as of this encounter Visit Diagnoses Not on filedocumented in this encounter Care Teams Central Sterile Technician Relationship Specialty Start Date End Date Sophy Calix MD [address] [place] [address] PCP - General Internal Medicine 06/29/24 documented as of this encounter
--- OUTSIDE RECORDS SUMMARY | 2025-07-14 13:01 | XMS_ITS | Encounter Summary ---
Author Organization [facility] Address [address] [place] [address] Care Team Providers Care Physicians Assistant Name Role Phone Sophy Calix MD Primary Care Provider [phone] Encounter Details Date Type Department Care Team (Late st Contact Info) Description 05/26/2025 Lab Requisition [facility] - Main Lab [address] [facility] [place] [address] Felipe Blount PA [address] [facility] [address] [place] [address] Encounter for other general examination Social History [...] Associated Diagnosis Comments COMPLETE BLOOD COUNT Routine 05/26/2025 6:39 AM EDT Encounter for other general examination BASIC METABOLIC PANEL Routine 05/26/2025 6:39 AM EDT Encounter for other general examination documented in this encounter Results * (ABNORMAL) Basic metabolic panel (05/26/2025 6:39 AM EDT) Sodium 139 133 - 145 mmol/L LAB CHEMISTRY METHOD 05/26/2025 9:54 AM [facility] Potassium 3.4(L) 3.5 - 5.5 mmol/L LAB CHEMISTRY METHOD 05/26/2025 9:54 AM [facility] Chloride 104 96 - 110 mmol/L LAB CHEMISTRY METHOD 05/26/2025 9:54 AM [facility] CO2 27 21 - 32 mmol/L LAB CHEMISTRY METHOD 05/26/2025 9:54 AM [facility] Anion Gap 8 3 - 11 LAB CHEMISTRY METHOD 05/26/2025 9:54 AM [facility] Glucose 90 70 - 100 mg/dL LAB CHEMISTRY METHOD 05/26/2025 9:54 AM [facility] BUN 16 5 - 25 mg/dL LAB CHEMISTRY METHOD 05/26/2025 9:54 AM [facility] Creatinine 1.10 0.50 - 1.10 mg/dL LAB CHEMISTRY METHOD 05/26/2025 9:54 AM [facility] eGFR 53(L) >=60 mL/min/1. 73m2 LAB CHEMISTRY METHOD 05/26/2025 9:54 AM [facility] Comment:Calculation based on the Chronic Kidney Disease Epidemiology Collaboration (CKD-EPI) equation refit without adjustment for race. BUN/Creatinine Ratio 14.5 LAB CHEMISTRY METHOD 05/26/2025 9:54 AM [facility] Calcium 8.7 8.5 - 10.5 mg/dL LAB CHEMISTRY METHOD 05/26/2025 9:54 AM [facility] Blood Venous blood specimen / Unknown Venipuncture / Unknown 05/26/2025 6:39 AM EDT 05/26/2025 8:34 AM EDT us Felipe DAVIS LAB BLOOD ORDERABLES Final R esult [facility] [address] [place] [address], * (ABNORMAL) Complete blood count (05/26/2025 6:39 AM EDT) WBC 4.4(L) 4.8 - 10.8 K/mcL LAB HEMETOLOGY METHOD 05/26/2025 9:32 AM EDT [facility] RBC 3.30(L) 3.80 - 4.80 M/mcL LAB HEMETOLOGY METHOD 05/26/2025 9:32 AM EDT [facility] Hemoglobin 10.2(L) 11.5 - 16.0 g/dL LAB HEMETOLOGY METHOD 05/26/2025 9:32 AM EDT [facility] Hematocrit 31.9(L) 35.0 - 47.0 % LAB HEMETOLOGY METHOD 05/26/2025 9:32 AM EDT [facility] MCV 96.1 79.0 - 98.0 FL LAB HEMETOLOGY METHOD 05/26/2025 9:32 AM EDT [facility] MCH 30.7 27.0 - 32.0 pcg LAB HEMETOLOGY METHOD 05/26/2025 9:32 AM EDT [facility] MCHC 32.0 32.0 - 37.0 g/dL LAB HEMETOLOGY METHOD 05/26/2025 9:32 AM EDT [facility] RDW 18.6(H) 11.0 - 15.0 % LAB HEMETOLOGY METHOD 05/26/2025 9:32 AM EDT [facility] Platelets 154 130 - 400 K/mcL LAB HEMETOLOGY METHOD 05/26/2025 9:32 AM EDT [facility] MPV 10.2 7.0 - 11.0 FL LAB HEMETOLOGY METHOD 05/26/2025 9:32 AM EDT [facility] NRBC 0.0 <1.0 % LAB HEMETOLOGY METHOD 05/26/2025 9:32 AM EDT [facility] NRBC Absolute 0.00 <0.10 K/mcL LAB HEMETOLOGY METHOD 05/26/2025 9:32 AM EDT [facility] Blood Venous blood specimen / Unknown Venipuncture / Unknown 05/26/2025 6:39 AM EDT 05/26/2025 8:34 AM EDT us Felipe DAVIS LAB BLOOD ORDERABLES Final R esult [facility] [address] [place] [address], documented in this encounter Visit Diagnoses Diagnosis Encounter for other general examination documented in this encounter Care Teams Physicians Assistant Relationship Specialty Start Date End Date Sophy Calix MD [address] [place] [address] PCP - General Internal Medicine 11/18/24 documented as of this encounter
--- OUTSIDE RECORDS SUMMARY | 2025-07-14 13:01 | XMS_ITS | Encounter Summary ---
Author Organization [facility] Address [address] [place] [address] Care Team Providers Care Dermatology Specialist Name Role Phone Sophy Calix MD Primary Care Provider [phone] Encounter Details Date Type Department Care Team (Late st Contact Info) Description 07/12/2025 Telephone [facility] Hematology Oncology [address] [place] [address] Reanna Brown MA Social History Tobacco Use Types Packs/Day Years [...] on file documented as of this encounter Progress Notes * Reanna Brown MA - 07/12/2025 2:10 PM EDT Patient admitted at [facility] and treating doctor is looking to speak with Md today to discuss patient's health. Dr. Morales can be reached at [phone] (cell phone). documented in this encounter Plan of Treatment Not on file documented as of this encounter Visit Diagnoses Not on filedocumented in this encounter Care Teams Dermatology Specialist Relationship Specialty Start Date End Date Sophy Calix MD [address] [place] [address] PCP - General Internal Medicine 11/18/24 documented as of this encounter
--- OUTSIDE RECORDS SUMMARY | 2025-07-14 13:01 | XMS_ITS ---
Author Organization [facility] Address [address] [place] [address] Phone Care Team Providers Care Guitar Technician Name Role Phone Self-Referred, Patient Unavailable Unavailab Jason Gallego MD Unavailable [phone] Soha Clark MD Primary Care Provider Og Acuna MD Unavailable [phone] Linda Lozoya RN Unavailable [email or web address] [email or web address] Dunaway RN Unavailable [email or web address] Active Problems Problem Noted Date Diagnosed Date [...] SSTI at para site, now discontinued per ID curbside). Denies respiratory sx. -- Continue cefepime, transition [...] cytology negative. 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 Surgery placed suture 09/16 to water main installer helper in paracentesis site drainage. -- Discontinued [...] extension at level of T7. 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 LPs with IT chemo without TOOL MAINTENANCE TECHNICIAN disease (LP w/ IT on 09/03/23). 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 Started on protocol with Inotuzumab (days 1,7,15) and Venetoclax (days [...] PRN nausea Examination prior to chemotherapy 06/28/2023 Current Treatment and Therapy Plans No current plan information found. Past Treatment and Therapy Plans Access and Flush Therapy Plan Plan Name Start Date Discontinue Date Treatment Medications Discontinue Reason Plan Provider ACCESS AND FLUSH (DFCI) 10/01/2023 09/27/2024 No medications scheduled. a. Therapy Complete Molly Wilkins, EMAIL MARKETER RESEARCH PLAN Plan Name Start Date Discontinue Date Treatment Medications Discontinue Reason Plan Provider Cycles - 400 MG VENETOCLAX + INOTUZUMAB OZOGAMICIN 3 08/26/2023 cytarabine +/- methotrexate +/- hydrocortisone INTRATHECAL syringeID-venetoc lax ()inotuzuma b ozogamicin (BESPONSA) IVPB Bag c. Not Tolerated Manuel Reyes MD 1 (2 of 3 cycles) started TREATMENT PLAN Plan Name Start Date Discontinue Date Treatment Medications Discontinue Reason Plan Provider Cycles IT Methotre xate/Hyd rocortis one/Cyta rabine 3 04/12/2025 cytarabine +/- methotrexate +/- hydrocortisone INTRATHECAL syringe a. Therapy Complete Manuel Reyes MD 2 of 2 cycles started TREATMENT PLAN-SUPPLEMENTAL Plan Name Start Date Discontinue Date Treatment Medications Discontinue Reason Plan Provider Cycles BLINATUMOMAB FOR RELAPSED/REFRA CTORY ALL WITH 7-DAY PUMP 09/03/20 23 09/10/2023 blinatumomab (BLINCYTO) infusion 9 mcg/day Bagblinatumomab (BLYNCYTO)blinatu mumab (BLINCYTO) CADD pump infusion 28 mcg/day - 7 days Bag c. Not Tolerated Manuel Reyes MD 1 of 9 cycles started BLINATUMOMAB 09/02/20 23 09/02/2023 blinatumomab (BLYNCYTO) m. Entered in error Manuel Reyes MD Treatment not started BLINATUMOMAB FOR RELAPSED/REFRA CTORY ALL WITH 7-DAY PUMP 11/06/15 2309/02/2023 blinatumomab (BLYNCYTO)blinatu mumab (BLINCYTO) CADD pump infusion 28 mcg/day - 7 days Bag m. Entered in error Manuel Reyes MD Treatment not started BLINATUMOMAB 09/03/2009/02/2023 blinatumomab (BLYNCYTO) laine. Entered in error Manuel Reyes MD Treatment not started Resolved Problems Problem Noted Date Diagnosed Date [...]
--- OUTSIDE RECORDS SUMMARY | 2025-07-14 13:01 | XMS_ITS | Encounter Summary ---
Author Organization [facility] Address [address] [place] [address] Care Team Providers Care Electrolysis Needle Operator Name Role Phone Sophy Calix MD Primary Care Provider + [phone] Encounter Details Date Type Department Care Team (Late st Contact Info) Description 05/12/2025 Lab Requisition [facility] - Main Lab [address] [place] [address] Sabine Tello PA [address] [place] [id number] Encounter for other general examination Social History [...] Procedure Name Priority Date/Time Associated Diagnosis Comments AMMONIA Routine 05/12/2025 6:30 AM EDT Encounter for other general examination documented in this encounter Results * Ammonia (05/12/2025 6:30 AM EDT) Ammonia 23 11 - 35 mcmol/L LAB CHEMISTRY METHOD 05/12/2025 8:[address] [facility] Blood Venous blood specimen / Unknown 05/12/2025 6:30 AM EDT 05/12/2025 7:42 AM EDT us Sabine DAVIS LAB BLOOD ORDERABLES Final Re sult [facility] [address] [place] [address], documented in this encounter Visit Diagnoses Diagnosis Encounter for other general examination documented in this encounter Care Teams Electrolysis Needle Operator Relationship Specialty Start Date End Date Sophy Calix MD [address] [place] [address] PCP - General Internal Medicine 11/18/24 documented as of this encounter
--- OUTSIDE RECORDS SUMMARY | 2025-07-14 13:01 | XMS_ITS | Clinical Summary ---
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 08/25/20 23 Active ondansetron (ZOFRAN) 4 mg tablet TAKE 1-2 TABLETS BY MOUTH EVERY 8 HOURS NEEDED FOR NAUSEA. 11/06/19 23 Active omeprazole (PriLOSEC) [address] capsule 07/22/20 23 Active cyanocobalamin (VITAMIN B-12) 1,000 mcg tablet Take 1 tablet (1,000 mcg total) by mouth daily. 08/19/20 23 Active cholecalciferol (VITAMIN D-3) 25 mcg (1,000 unit) tablet Take 1 tablet (1,000 Units total) by mouth 1 (one) time each day. Active ursodioL (ACTIGALL) 300 mg capsule Take 1 capsule (300 mg total) by mouth 2 (two) times a day. Active spironolactone (ALDACTONE) 50 mg tablet TAKE 1 TABLET BY MOUTH EVERY DAY 90 tablet 1 12/22/19 25 Active Additional Information Patient taking differently:50 mg oral2 times weekly, FRIDAY/FRIDAY, Reported on 05/09/2025 zolpidem (AMBIEN) 10 mg tablet Take 1 tablet (10 mg total) by mouth at bedtime as needed for sleep. Max Daily Amount: 10 mg 30 tablet 1 01/13/20 25 Active Additional Information Patient not taking.Reported on 05/09/2025 mercaptopurine (PURINETHOL) 50 mg tablet Take 1 tablet (50 mg total) by mouth 1 (one) time each day 90 tablet 1 01/13/20 25 Active meclizine (ANTIVERT) 12.5 mg tablet Take 1 tablet (12.5 mg total) by mouth 3 (three) times a day if needed for dizziness. 03/17/20 25 Active predniSONE (DELTASONE) 20 mg tablet Take 5 tablets (100 mg total) by mouth 1 (one) time each day. 05/05/20 25 Active sodium bicarbonate 650 mg tablet TAKE 1 TABLET BY MOUTH TWICE A DAY 180 tablet 1 06/28/20 25 Active potassium chloride (KLOR-CON M10) 10 mEq CR tablet Take 1 tablet (10 mEq total) by mouth 2 (two) times a day. 180 each 1 01/13/20 25 025 sodium bicarbonate 650 mg tablet TAKE 1 TABLET BY MOUTH 2 TIMES A DAY 180 tablet 1 03/18/20 25 025 Discontinued Active Problems Problem Noted Date Diagnosed Date Metabolic acidosis with incr eased anion gap and reduced excretion of inorganic acids 02/23/2025 Pneumonia 02/16/2025 Primary localized osteoarthrosis of ankle and fo ot 10/25/2024 Abnormal liver enzymes 12/06/2023 Cirrhosis of liver with ascites ([facility]/HCC V24, CM S/HCC V28) 12/06/2023 Pancytopenia ([facility]/HCC V24, CMS/HCC V28) 08/05/20 23 Ascites 08/05/2023 Hyperbilirubinemia 08/05/2023 Myelodysplastic syndrome (CMS/HCC V24, CMS/HCC V 28) 05/06/2023 Tubular adenoma 11/06/2022 Bilateral leg edema 09/02/2019 Chemotherapy-induced neutropenia ([facility] V24) 1 Drug-induced insomnia (CMS/HCC V24, CMS/HCC V28) 08/26/2019 Gait instability 08/06/2019 Acute lymphoblastic leukemia (ALL) in remission (CMS/HCC V24, CMS/HCC V28) 11/23/2018 Anemia in neoplastic disease 11/23/2018 Encounters Date Type Department Care Team Description 07/12/2025 [facility] Hematology Oncology [address] [place] [address] Reanna Brown MA 07/04/2025 Telephone [facility] Hematology Oncology [address] [place] [address] Og Acuna MD 06/28/2025 [facility] Hematology Oncology [address] [place] [address] Og Acuna MD 06/09/2025 [facility] Hematology Oncology [address] [place] [address] Og Acuna MD 05/30/2025 [facility] Hematology Oncology [address] [place] [address] Og Acuna MD 05/26/2025 Lab Requisition [facility] Main Lab [address] [place] [address] Felipe Blount PA Encounter for other general examination 05/21/2025 Lab Requisition [facility] - Main Lab [address] [place] [address] Sabine Tello PA Encounter for other general examination 05/19/2025 Lab Requisition [facility] Lab [address] [place] [address] Felipe Blount PA Encounter for other general examination 05/13/2025 Lab Requisition [facility] Lab [address] [place] [address] Sabine Tello PA Encounter for other general examination 05/12/2025 Lab Requisition [facility] Main Lab [address] [place] [address] Sabine Tello PA Encounter for other general examination 05/12/2025 Lab Requisition [facility] - Main Lab [address] [place] [phone] Sabine Tello PA Encounter for other general examination 05/11/2025 Lab Requisition [facility] - Main Lab [address] [place] [phone] Felipe Blount PA Encounter for other general examination 05/09/2025 4:49 AM EDT - 05/10/2025 3:32 PM EDT Emergency [facility] Emergency [address] [place] [phone] Bismark Mora MD Landry, Jonathan P, MD Mersier, Jasmine, DO Failure to thrive in adult (Primary Dx) Discharge Disposition: Home or Self Care 05/05/2025 11:30 AM EDT - 05/05/2025 11:59 PM EDT Hospital Encounter [facility] Infusion Center [address] [phone] Og Acuna MD Acute lymphoblastic leukemia (ALL) in remission (CMS/HCC V24, CMS/HCC V28) (Primary Dx) Discharge Disposition: Home or Self Care 05/05/2025 11:00 AM EDT Office Visit [facility] Hematology Oncology [address] [place] [address] Og Acuna MD Acute lymphoblastic leukemia (ALL) in remission (CMS/HCC V24, CMS/HCC V28) (Primary Dx); Cirrhosis of liver with ascites, unspecified hepatic cirrhosis type (CMS/HCC V24, CMS/HCC V28); Chemotherapy-induced neutropenia (CMS/HCC V24); Anemia in neoplastic disease; Gait instability; Other ascites; Encephalopathy, unspecified type 04/28/2025 2:00 PM EDT - 04/28/2025 11:59 PM EDT Hospital Encounter [facility] Xray [address] [place] [phone] Pneumonia, unspecified organism Discharge Disposition: Home or Self Care from Last 3 Months Surgical History Surgery Date Site/Laterality Comments BREAST LUMPECTOMY PROCEDURE:BREAST LUMPECTOMY COLON SURGERY PROCEDURE:COLON SURGERY CATARACT EXTRACTION TOTAL KNEE ARTHROPLASTY Medical History Medical History Date Comments Breast cancer (CMS/HCC V24, CMS/HCC V28) DX:Breast cancer (HCC) Acute lymphoblastic leukemia (ALL) (CMS/HCC V24, CMS/HCC V28) in remission, on maintence t reatment Cirrhosis of liver (CMS/HCC V24, CMS/HCC V28) with ascities followed by Dr Mai Insomnia Gait instability Anemia Family History Medical History Relation Name Comments Cancer Other Relation Name Status Comments Other Social History Tobacco Use Types Packs/Day Years Used Date Smoking Tobacco: Never Smokeless Tobacco: Never Tobacco Cessation:Counseling Given: Not Answered Alcohol Use Standard Drinks/Week Comments Not Currently 0 (1 standard drink = 0.6 oz pur e alcohol) Interpersonal Safety Answer Date Record ed Physical Abuse 02/17/2025 Verbal Abuse 02/17/2025 Comments Unknown Sex and Gender Information Value Date Recorded Sex Assigned at Not on file Legal Sex Female 10:37 PM EST Gender Identity Not on file Sexual Orientation Not on file Obstetrics History Last Filed Vital Signs Vital Sign Reading Time Taken Comments Blood Pressure 148/86 05/10/2025 2:14 PM EDT Pulse 72 05/10/2025 2:14 PM EDT Temperature 36.5 C (97.7 F) 05/10/2025 2:14 PM EDT Respiratory Rate 18 05/10/2025 2:14 PM EDT Oxygen Saturation 98% 05/10/2025 2:14 PM EDT Inhaled Oxygen Concentration - - Weight 83 kg (183 lb) 05/09/2025 5:49 AM EDT Height 160 cm (5' 3 ) 05/09/2025 5:49 AM EDT Body Mass Index 32.42 05/09/2025 5:49 AM EDT Plan of Treatment Health Maintenance Due Date Last Done Comments Hepatitis A Vaccines (1 of 2 - Risk 2-dose series) 1969 Hepatitis B Vaccines (1 of 3 - Risk 3-dose series) 2010 Cholesterol Screening (Lipid Panel) 10/03/2022 Colorectal Cancer Screening: Colonoscopy 10/03/2022 Medicare Annual Wellness Visit 10/03/2022 Osteoporosis Screening (Bone Density Screening) 10/03/2022 Social Influencers of Health Screening 10/03/2022 Depression Screening 10/27/2024 COVID-19 Vaccine (7 - Pfizer risk 2023- season) 2025 06/24/2024, 07/05/2022, 02/14/2022, Additional history exists Influenza Vaccine (#1) 2025 , 07/16/2023, 07/05/2022, Additional history exists Falls Risk Assessment 05/05/2026 05/05/2025 Hypertension/CHF/CAD Annual BMP Blood Test 05/26/2026 05/26/2025, 05/19/2025, 05/13/2025, Additional history exists DTaP,Tdap,and Td Vaccines (3 - Td or Tdap) 06/06/2032 06/06/2022, 06/01/2018 Pneumococcal Vaccine: 50+ Years Completed 05/17/2022, 07/21/2016, 10/02/2006 Zoster Vaccines Completed 08/22/2022, 03/27, 03/16/2016 Hepatitis C Screening Completed 06/28/2023, 023 RSV Immunization Adult Patients Completed 05/30/2024 Breast Cancer Screening Discontinued 06/07/2024, 05/30 HIB Vaccines Aged Out No longer eligi ble based on patient's age to complete this topic HPV Vaccines Aged Out No longer eligi ble based on patient's age to complete this topic IPV Vaccines Aged Out No longer eligi ble based on patient's age to complete this topic MMR Vaccines Aged Out No longer eligi ble based on patient's age to complete this topic Meningococcal ACWY Vaccine Aged Out N o longer eligible based on patient's age to complete this topic Meningococcal B Vaccine Aged Out No l onger eligible based on patient's age to complete this topic RSV Immunization Patients Under 20 months Aged Out No longer eligible based on patient's age to complete this topic Varicella Vaccines Aged Out No longer eligible based on patient's age to complete this topic Procedures Procedure Name Priority Date/Time Associated Diagnosis Comments BASIC METABOLIC PANEL Routine 05/26/2025 6:39 AM EDT Encounter for other general examination COMPLETE BLOOD COUNT Routine 05/26/2025 6:39 AM EDT Encounter for other general examination CORTISOL Routine 05/21/2025 12:00 PM EDT Encounter for other general examination AMMONIA Routine 05/21/2025 12:00 PM EDT Encounter for other general examination CBC WITH AUTO DIFFERENTIAL Routine 05/19/2025 5:13 [...] AM EDT Encounter for other general examination COMPLETE BLOOD COUNT Routine 05/13/2025 5:58 AM EDT Encounter for other general examination AMMONIA Routine 05/12/2025 6:30 AM EDT Encounter for other general examination CREATINE KINASE Routine 05/12/2025 6:30 AM EDT Encounter for other general examination CORTISOL Routine 05/12/2025 6:30 AM EDT Encounter for other general examination VITAMIN B12 AND FOLATE Routine 05/12/2025 6:30 AM EDT Encounter for other general examination THYROID STIMULATING HORMONE Routine 05/12/2025 6:30 AM EDT Encounter for other general examination CBC WITH AUTO DIFFERENTIAL Routine 05/11/2025 6:03 AM EDT Encounter for other general examination MAGNESIUM Routine 05/11/2025 6:03 AM EDT Encounter for other general examination COMPREHENSIVE METABOLIC PANEL Routine 05/11/2025 6:03 AM EDT Encounter for other general examination CBC AND DIFFERENTIAL Routine 05/11/2025 6:03 AM EDT Encounter for other general examination ECG ANNOTATED 05/11/2025 TRINIDAD URINE CULTURE TUBE STAT 05/09/2025 12:23 PM EDT URINALYSIS WITH REFLEX MICROSCOPIC AND CULTURE STAT 05/09/2025 12:23 PM EDT URINALYSIS WITH REFLEX MICROSCOPIC AND CULTURE STAT 05/09/2025 12:23 PM EDT MR BRAIN WO AND W CONTRAST STAT 05/09/2025 11:39 AM EDT [id number], RSV, FLU A AND B QUALITATIVE RT-PCR, INTERNAL LAB STAT 05/09/2025 8:04 AM EDT XR CHEST 2 VIEWS STAT 05/09/2025 6:43 AM EDT ACTIVATED PARTIAL THROMBOPLASTIN TIME STAT 05/09/2025 6:21 AM EDT PROTHROMBIN TIME WITH INR STAT 05/09/2025 6:21 AM EDT TROPONIN I HIGH SENSITIVITY STAT 05/09/2025 6:21 AM EDT HEPATIC FUNCTION PANEL STAT Add-on 05/09/2025 5:46 AM EDT CREATINE KINASE Add-On 05/09/2025 5:46 AM EDT CBC WITH AUTO DIFFERENTIAL STAT 05/09/2025 5:46 AM EDT TROPONIN I HIGH SENSITIVITY STAT 05/09/2025 5:46 AM EDT MAGNESIUM STAT 05/09/2025 5:46 AM EDT BASIC METABOLIC PANEL STAT 05/09/2025 5:46 AM EDT CBC AND DIFFERENTIAL STAT 05/09/2025 5:46 AM EDT ECG 12-LEAD STAT 05/09/2025 5:15 AM EDT CBC WITH AUTO DIFFERENTIAL Routine 05/05/2025 10:10 AM EDT Acute lymphoblastic leukemia (ALL) in remission (CMS/HCC V24, CMS/HCC V28) LACTATE DEHYDROGENASE Routine 05/05/2025 10:10 AM EDT Acute lymphoblastic leukemia (ALL) in remission (CMS/HCC V24, CMS/HCC V28) COMPREHENSIVE METABOLIC PANEL Routine 05/05/2025 10:10 AM EDT Acute lymphoblastic leukemia (ALL) in remission (CMS/HCC V24, CMS/HCC V28) CBC AND DIFFERENTIAL Routine 05/05/2025 10:10 AM EDT Acute lymphoblastic leukemia (ALL) in remission (CMS/HCC V24, CMS/HCC V28) XR CHEST 2 VIEWS Routine 04/28/2025 2:25 PM EDT Pneumonia, unspecified organism FABRIZIO SCREENING DIGITAL Routine 06/07/2024 12:29 PM EDT Encounter for screening mammogram for malignant neoplasm of breast HEPATITIS C SCREENING Routine 06/28/2023 from Last 3 Months or Most Recently Relevant to Health Maintenance Results * (ABNORMAL) Complete blood count (05/26/2025 6:39 AM EDT) Only the most recent of2 resultswithin the time period is included. WBC 4.4(L) 4.8 - 10.8 K/mcL LAB HEMETOLOGY METHOD 05/26/2025 9:32 AM EDT [facility] RBC 3.30(L) 3.80 - 4.80 M/mcL LAB HEMETOLOGY METHOD 05/26/2025 9:32 AM [facility] Hemoglobin 10.2(L) 11.5 - 16.0 g/dL LAB HEMETOLOGY METHOD 05/26/2025 9:32 AM [facility] LAB Hematocrit 31.9(L) 35.0 - 47.0 % LAB HEMETOLOGY METHOD 05/26/2025 9:32 AM [facility] LAB MCV 96.1 79.0 - 98.0 FL LAB HEMETOLOGY METHOD 05/26/2025 9:32 AM [facility] LAB MCH 30.7 27.0 - 32.0 pcg LAB HEMETOLOGY METHOD 05/26/2025 9:32 AM [facility] MCHC 32.0 32.0 - 37.0 g/dL LAB HEMETOLOGY METHOD 05/26/2025 9:32 AM [facility] RDW 18.6(H) 11.0 - 15.0 % LAB HEMETOLOGY METHOD 05/26/2025 9:32 AM [facility] Platelets 154 130 - 400 K/mcL LAB HEMETOLOGY METHOD 05/26/2025 9:32 AM [facility] MPV 10.2 7.0 - 11.0 FL LAB HEMETOLOGY METHOD 05/26/2025 9:32 AM [facility] NRBC 0.0 <1.0 % LAB HEMETOLOGY METHOD 05/26/2025 9:32 AM [facility] NRBC Absolute 0.00 <0.10 K/mcL LAB HEMETOLOGY METHOD 05/26/2025 9:32 AM [facility] Blood Venous blood specimen / Unknown Venipuncture / Unknown 05/26/2025 6:39 AM EDT 05/26/2025 8:34 AM EDT us Felipe DAVIS LAB BLOOD ORDERABLES Final R esult [facility] [address] [place] [address], * (ABNORMAL) Basic metabolic panel (05/26/2025 6:39 AM EDT) Only the most recent of2 resultswithin the time period is included. Sodium 139 133 - 145 mmol/L LAB CHEMISTRY METHOD 05/26/2025 9:54 AM [facility] Potassium 3.4(L) 3.5 - 5.5 mmol/L LAB CHEMISTRY METHOD 05/26/2025 9:54 AM [facility] Chloride 104 96 - 110 mmol/L LAB CHEMISTRY METHOD 05/26/2025 9:54 AM [facility] CO2 27 21 - 32 mmol/L LAB CHEMISTRY METHOD 05/26/2025 9:54 AM [facility] Anion Gap 8 3 - 11 LAB CHEMISTRY METHOD 05/26/2025 9:54 AM [facility] Glucose 90 70 - 100 mg/dL LAB CHEMISTRY METHOD 05/26/2025 9:54 AM [facility] BUN 16 5 - 25 mg/dL LAB CHEMISTRY METHOD 05/26/2025 9:54 AM [facility] Creatinine 1.10 0.50 - 1.10 mg/dL LAB CHEMISTRY METHOD 05/26/2025 9:54 AM [facility] eGFR 53(L) >=60 mL/min/1. 73m2 LAB CHEMISTRY METHOD 05/26/2025 9:54 AM [facility] Comment:Calculation based on the Chronic Kidney Disease Epidemiology Collaboration (CKD-EPI) equation refit without adjustment for race. BUN/Creatinine Ratio 14.5 LAB CHEMISTRY METHOD 05/26/2025 9:54 AM [facility] Calcium 8.7 8.5 - 10.5 mg/dL LAB CHEMISTRY METHOD 05/26/2025 9:[address] [facility] Blood Venous blood specimen / Unknown Venipuncture / Unknown 05/26/2025 6:39 AM EDT 05/26/2025 8:34 AM EDT Felipe DAVIS LAB BLOOD ORDERABLES Final R esult Performing Organization Address [facility] Co de Phone Number [facility] [address] [place] [address], * Cortisol (05/21/2025 12:00 PM EDT) Only the most recent of2 resultswithin the time period is included. Cortisol 11.1 mcg/dL LAB CHEMISTRY METHOD 05/22/2025 10:[address] [facility] Blood Venous blood specimen / Unknown Venipuncture / Unknown 05/21/2025 12:00 PM EDT 05/21/2025 12:[address] [facility] - 05/22/2025 10:54 AM EDT CORTISOL REFERENCE RANGE 8 AM SPEC: 5.0-23.0 mcg/dL 4 PM SPEC: 3.0-16.0 mcg/dL 8 PM SPEC: <5.0 mcg/dL Sabine DAVIS LAB BLOOD ORDERABLES Final Re sult Performing Organization Address [facility] Co de Phone Number [facility] [address] [place] [address], * Ammonia (05/21/2025 12:00 PM EDT) Only the most recent of2 resultswithin the time period is included. Ammonia 17 11 - 35 mcmol/L LAB CHEMISTRY METHOD 05/21/2025 1:[address] [facility] Blood Venous blood specimen / Unknown Venipuncture / Unknown 05/21/2025 12:00 PM EDT 05/21/2025 12:44 PM EDT us Sabine DAVIS LAB BLOOD ORDERABLES Final Re sult [facility] [address] [place] [address], * (ABNORMAL) CBC auto differential (05/19/2025 5:13 AM EDT) Only the most recent of4 resultswithin the time period is included. WBC 4.2(L) 4.8 - 10.8 K/mcL LAB HEMETOLOGY METHOD 05/19/2025 7:41 AM [facility] RBC 3.60(L) 3.80 - 4.80 M/mcL LAB HEMETOLOGY METHOD 05/19/2025 7:41 AM [facility] Hemoglobin 11.3(L) 11.5 - 16.0 g/dL LAB HEMETOLOGY METHOD 05/19/2025 7:41 AM [facility] Hematocrit 34.5(L) 35.0 - 47.0 % LAB HEMETOLOGY METHOD 05/19/2025 7:41 AM [facility] MCV 95.0 79.0 - 98.0 FL LAB HEMETOLOGY METHOD 05/19/2025 7:41 AM [facility] MCH 31.1 27.0 - 32.0 pcg LAB HEMETOLOGY METHOD 05/19/2025 7:41 AM [facility] MCHC 32.8 32.0 - 37.0 g/dL LAB HEMETOLOGY METHOD 05/19/2025 7:41 AM [facility] RDW 17.7(H) 11.0 - 15.0 % LAB HEMETOLOGY METHOD 05/19/2025 7:41 AM [facility] Platelets 143 130 - 400 K/mcL LAB HEMETOLOGY METHOD 05/19/2025 7:41 AM [facility] MPV 10.5 7.0 - 11.0 FL LAB HEMETOLOGY METHOD 05/19/2025 7:41 AM [facility] NRBC 0.0 <1.0 % LAB HEMETOLOGY METHOD 05/19/2025 7:41 AM [facility] NRBC Absolute 0.00 <0.10 K/mcL LAB HEMETOLOGY METHOD 05/19/2025 7:41 AM [facility] Neutrophils Relative 76.4 % LAB HEMETOLOGY METHOD 05/19/2025 7:41 AM [facility] Lymphocytes Relative 9.2 % LAB HEMETOLOGY METHOD 05/19/2025 7:41 AM [facility] Monocytes Relative 12.3 % LAB HEMETOLOGY METHOD 05/19/2025 7:41 AM [facility] Eosinophils Relative 0.7 % LAB HEMETOLOGY METHOD 05/19/2025 7:41 AM [facility] Basophils Relative 0.2 % LAB HEMETOLOGY METHOD 05/19/2025 7:41 AM [facility] Immature Granulocytes Relative 1.2 % LAB HEMETOLOGY METHOD 05/19/2025 7:41 AM [facility] Neutrophils Absolute 3.17 1.50 - 7.00 K/mcL LAB HEMETOLOGY METHOD 05/19/2025 7:41 AM [facility] Lymphocytes Absolute 0.38(L) 1.00 - 5.00 K/mcL LAB HEMETOLOGY METHOD 05/19/2025 7:41 AM [facility] Monocytes Absolute 0.51 0.20 - 1.00 K/mcL LAB HEMETOLOGY METHOD 05/19/2025 7:[address] [facility] Eosinophils Absolute 0.03 0.00 - 0.50 K/mcL LAB HEMETOLOGY METHOD 05/19/2025 7:[address] [facility] Basophils Absolute 0.01 0.00 - 0.20 K/[facility] LAB HEMETOLOGY METHOD 05/19/2025 7:[address] [facility] Immature Granulocytes Absolute 0.05(H) 0.00 - 0.03 K/[facility] LAB HEMETOLOGY METHOD 05/19/2025 7:[address] [facility] Blood Venous blood specimen / Unknown Venipuncture / Unknown 05/19/2025 5:13 AM EDT 05/19/2025 7:10 AM EDT Felipe DAVIS LAB BLOOD ORDERABLES Final R esult Performing Organization Address City/[facility]/ZIP Co de Phone Number [facility] [address] [place] [address], [place] [phone] * Magnesium (05/19/2025 5:13 AM EDT) Only the most recent of3 resultswithin the time period is included. Magnesium 2.0 1.9 - 2.6 mg/dL LAB CHEMISTRY METHOD 05/19/2025 8:[address] [facility] Blood Venous blood specimen / Unknown Venipuncture / Unknown 05/19/2025 5:13 AM EDT 05/19/2025 7:10 AM EDT Felipe DAVIS LAB BLOOD ORDERABLES Final R esult [facility] [address] [place] [address], [place] [phone] * (ABNORMAL) Comprehensive metabolic panel (05/19/2025 5:13 AM EDT) Only the most recent of4 resultswithin the time period is included. Sodium 138 133 - 145 mmol/L LAB CHEMISTRY METHOD 05/19/2025 8:04 AM [facility] Potassium 4.2 3.5 - 5.5 mmol/L LAB CHEMISTRY METHOD 05/19/2025 8:04 AM [facility] Chloride 107 96 - 110 mmol/L LAB CHEMISTRY METHOD 05/19/2025 8:04 AM [facility] CO2 23 21 - 32 mmol/L LAB CHEMISTRY METHOD 05/19/2025 8:04 AM [facility] Anion Gap 8 3 - 11 LAB CHEMISTRY METHOD 05/19/2025 8:04 AM [facility] Glucose 83 70 - 100 mg/dL LAB CHEMISTRY METHOD 05/19/2025 8:04 AM [facility] BUN 11 5 - 25 mg/dL LAB CHEMISTRY METHOD 05/19/2025 8:04 AM [facility] Creatinine 1.14(H) 0.50 - 1.10 mg/dL LAB CHEMISTRY METHOD 05/19/2025 8:04 AM [facility] eGFR 50(L) >=60 mL/min/1. 73m2 LAB CHEMISTRY METHOD 05/19/2025 8:04 AM [facility] Comment:Calculation based on the Chronic Kidney Disease Epidemiology Collaboration (CKD-EPI) equation refit without adjustment for race. BUN/Creatinine Ratio 9.6 LAB CHEMISTRY METHOD 05/19/2025 8:04 AM [facility] Calcium 9.1 8.5 - 10.5 mg/dL LAB CHEMISTRY METHOD 05/19/2025 8:04 AM [facility] AST (SGOT) 14 10 - 42 unit/L LAB CHEMISTRY METHOD 05/19/2025 8:04 AM [facility] ALT (SGPT) 21 10 - 60 unit/L LAB CHEMISTRY METHOD 05/19/2025 8:[address] [facility] Alkaline Phosphatase 50 42 - 121 unit/L LAB CHEMISTRY METHOD 05/19/2025 8:[address] [facility] Total Protein 5.6(L) 6.0 - 8.0 g/dL LAB CHEMISTRY METHOD 05/19/2025 8:[address] [facility] Albumin 3.4 3.2 - 5.0 g/dL LAB CHEMISTRY METHOD 05/19/2025 8:[address] [facility] Total Bilirubin 0.8 0.0 - 1.4 mg/dL LAB CHEMISTRY METHOD 05/19/2025 8:[address] [facility] Blood Venous blood specimen / Unknown Venipuncture / Unknown 05/19/2025 5:13 AM EDT 05/19/2025 7:10 AM EDT us Felipe DAVIS LAB BLOOD ORDERABLES Final R esult [facility] [address] [place] [address], [place] [phone] * (ABNORMAL) Vitamin B12 and folate (05/12/2025 6:30 AM EDT) Vitamin B-12 >2,000(H) 250 - 900 pcg/mL LAB CHEMISTRY METHOD 05/12/2025 11:[address] [facility] Folate 17.6(H) 2.8 - 17.0 ng/ml LAB CHEMISTRY METHOD 05/12/2025 11:[address] [facility] Blood Venous blood specimen / Unknown 05/12/2025 6:30 AM EDT 05/12/2025 11:04 AM EDT Sabine DAVIS LAB BLOOD ORDERABLES Final Re sult [facility] [address] [place] [address], [place] [phone] * (ABNORMAL) Thyroid stimulating hormone (05/12/2025 6:30 AM EDT) [facility] TSH 4.36(H) 0.40 - 4.00 mcIU/mL LAB CHEMISTRY METHOD 05/12/2025 1:[address] [facility] Blood Venous blood specimen / Unknown 05/12/2025 6:30 AM EDT 05/12/2025 11:04 AM EDT Sabine DAVIS LAB BLOOD ORDERABLES Final Re sult Performing Organization Address [facility]/ZIP Co de Phone Number [facility] [address] [place] [address], [place] [phone] * Creatine kinase (05/12/2025 6:30 AM EDT) Only the most recent of2 resultswithin the time period is included. [facility] Total CK 29 22 - 269 unit/L LAB CHEMISTRY METHOD 05/12/2025 11:[address] [facility] Blood Venous blood specimen / Unknown 05/12/2025 6:30 AM EDT 05/12/2025 11:04 AM EDT [facility] LAB BLOOD ORDERABLES Final Re sult [facility] [address] [place] [address], [place] [phone] * ECG-Annotated (05/11/2025) Provider Onbase MD ECG ORDERABLES Final Result * Urinalysis with reflex microscopic and culture (05/09/2025 12:23 PM EDT) [facility] Specific [place] Urine 1.012 1.003 - 1.030 LAB URINALYSIS - AUTOMATED METHOD 05/09/2025 1:[address] [facility] pH, Urine 6.0 5.0 - 8.0 pH LAB URINALYSIS - AUTOMATED METHOD 05/09/2025 1:[address] [facility] Leukocytes, Urine Negative Negative LAB URINALYSIS - AUTOMATED METHOD 05/09/2025 1:[address] [facility] Nitrite, Urine Negative Negative LAB URINALYSIS - AUTOMATED METHOD 05/09/2025 1:[address] [facility] Protein, Urine Negative <=Trace mg/dL LAB URINALYSIS - AUTOMATED METHOD 05/09/2025 [facility] Glucose, Urine Negative Negative mg/dL LAB URINALYSIS - AUTOMATED METHOD 05/09/2025 1:15 PM [facility] Ketones, Urine Negative Negative mg/dL LAB URINALYSIS - AUTOMATED METHOD 05/09/2025 1:[address] [facility] Urobilinogen, Urine 1.0 0.2 - 1.0 mg/dL LAB URINALYSIS - AUTOMATED METHOD 05/09/2025 1:15 PM [facility] Bilirubin, Urine Negative Negative LAB URINALYSIS - AUTOMATED METHOD 05/09/2025 1:15 PM [facility] Blood, Urine Negative Negative LAB URINALYSIS - AUTOMATED METHOD 05/09/2025 1:[address] [facility] Urine Urine specimen obtained by clean catch procedure / Unknown Non-blood Collection / Unknown 05/09/2025 12:23 PM EDT 05/09/2025 12:54 PM EDT us Elpidio Peacock MD LAB URINE ORDERABLES Final Resu lt [facility] [address] [place] [address], [place] [phone] * [place] urine culture tube (05/09/2025 12:23 PM EDT) Extra Tube Hold for add-ons. 05/09/2025 2:02 PM EDT [facility] Comment:Auto resulted. Urine Urine specimen obtained by clean catch procedure / Unknown Non-blood Collection / Unknown 05/09/2025 12:23 PM EDT 05/09/2025 12:54 PM EDT us Elpidio Peacock MD LAB URINE ORDERABLES Final Resu lt [facility] [address] [place] [address], [place] [phone] * MR Brain wo and w Contrast (05/09/2025 11:39 AM EDT) Anatomical Region Laterality Modality Head and Neck Magnetic Resonan ce 05/09/2025 11:5 9 AM EDT Impressions 05/09/2025 12:51 PM EDT No evidence of intracranial metastatic disease. No acute findings. -------- FINAL REPORT -------- Dictated By: Kike Rainey Dictated Date: 05/09/2025 11:59 ET Assigned Physician: Kike Rainey Reviewed and Electronically Signed By: Kike Rainey Signed Date: 05/09/2025 12:51 ET Workstation ID: [id number] Transcribed By: Self Edit Transcribed Date: 05/09/2025 11:59 ET Narrative 05/09/2025 12:51 PM EDT PROCEDURE: Contrast-enhanced MRI of the brain. HISTORY: altered mental status. TECHNIQUE: Multiplanar multisequence MRI of the brain with and without intravenous contrast. IV CONTRAST DOSE: 20 mL intravenous Dotarem from a 20 mL vial with 0 mL discarded. COMPARISON: Head CT 01/13/2025. FINDINGS: BRAIN: No diffusion abnormality. No mass or extra-axial fluid collection. No hydrocephalus. The major intracranial flow voids are preserved. Age commensurate ventricles and sulci. No abnormal enhancement. Patchy T2 hyperintensities in the supratentorial white matter are nonspecific but likely sequela of moderate chronic microvascular ischemic disease in a patient of this age. ORBITS: Lens implants. SINUSES/MASTOIDS: Extensive fluid in the right mastoids. Small amount of fluid in the left mastoids. CALVARIUM: Normal. OTHER: The visualized skull base soft tissues are normal. Partially visible mild degenerative changes of the cervical spine. Procedure Note Kike Rainey MD - 05/09/2025 PROCEDURE: Contrast-enhanced MRI of the brain. HISTORY: altered mental status. TECHNIQUE: Multiplanar multisequence MRI of the brain with and withoutintravenous contrast. IV CONTRAST DOSE: 20 mL intravenous Dotarem from a 20 mL vial with 0 mLdiscarded. COMPARISON: Head CT 01/13/2025. FINDINGS: BRAIN: No diffusion abnormality. No mass or extra-axial fluid collection.No hydrocephalus. The major intracranial flow voids are preserved. Agecommensurate ventricles and sulci. No abnormal enhancement. Patchy [id number] in the supratentorial white matter are nonspecific butlikely sequela of moderate chronic microvascular ischemic disease in apatient of this age. ORBITS: Lens implants. SINUSES/MASTOIDS: Extensive fluid in the right mastoids. Small amount offluid in the left mastoids. CALVARIUM: Normal. OTHER: The visualized skull base soft tissues are normal. Partiallyvisible mild degenerative changes of the cervical spine. IMPRESSION: No evidence of intracranial metastatic disease. No acute findings. -------- FINAL REPORT -------- Dictated By: Kike Rainey Dictated Date: 05/09/2025 11:59 ET Assigned Physician: Kike Rainey Reviewed and Electronically Signed By: Kike Rainey Signed Date: 05/09/2025 12:51 ET Workstation ID: [id number] Transcribed By: Self Edit Transcribed Date: 05/09/2025 11:59 ET Danish Calix MD IMG MRI PROCEDURES Final Re sult * [id number], RSV, Influenza A and B qualitative RT-PCR (05/09/2025 8:04 AM EDT) Influenza A PCR Not Detected Not Detected LAB MICROBIOLOGY METHOD 05/09/2025 10:[address] [facility] Influenza B PCR Not Detected Not Detected LAB MICROBIOLOGY METHOD 05/09/2025 10:[address] [facility] RSV PCR Not Detected Not Detected LAB MICROBIOLOGY METHOD 05/09/2025 10:[address] [facility] SARS COV-2 Not Detected Not Detected LAB MICROBIOLOGY METHOD 05/09/2025 10:[address] [facility] Swab Both anterior nares / Unknown Non-blood Collection / Unknown 05/09/2025 8:04 AM EDT 05/09/2025 9:46 AM EDT [facility] - 05/09/2025 10:26 AM EDT Disclaimer: Testing was performed using the [employer] GeneXpert Xpress SARS-CoV-2 _Flu_RSV PLUS PCR assay. The manner in which this information is used to guide patient care is the responsibility of the healthcare provider. Results should be correlated with the clinical history, epidemiological data, and other data available to the clinician evaluating the patient. Negative results do not preclude infection. This test has been authorized by the FDA under an Emergency Use Authorization (EUA). This test is only authorized for the duration of time the declaration that circumstances exist justifying the authorization of the emergency use of in vitro diagnostic tests for detection of SARS-CoV-2 virus and/or diagnosis of COVID-19 infection under section 564 (b) (1) of the Act, 21 U.S.C 360bbb-3 (b) (1), unless the authorization is terminated or revoked sooner. Reference Range: Not Detected Fact sheet for Healthcare providers can be found at https://www.fda.gov/media/920074/download. Fact sheet for Healthcare patients can be found at https://www.fda.gov/media/319621/download. Bismark Mora MD LAB MICROBIOLOGY - GENERAL O RDERABLES Final Result [facility] [address] [place] [address], * XR Chest 2 Views (05/09/2025 6:43 AM EDT) Only the most recent of2 resultswithin the time period is included. Anatomical Region Laterality Modality Body Radiographic Kimi ging 05/09/2025 8:16 AM EDT Impressions 05/09/2025 8:17 AM EDT No acute findings. -------- FINAL REPORT -------- Dictated By: Kike Rainey Dictated Date: 05/09/2025 08:16 ET Assigned Physician: Kike Rainey Reviewed and Electronically Signed By: Kike Rainey Signed Date: 05/09/2025 08:17 ET Workstation ID: [id number] Transcribed By: Self Edit Transcribed Date: 05/09/2025 08:16 ET Narrative 05/09/2025 8:17 AM EDT PROCEDURE: PA and lateral radiographs of the chest. HISTORY: chest pain. COMPARISON: 04/28/2025. FINDINGS: Elevated right hemidiaphragm with compression atelectasis at the right base. Atherosclerotic calcification of the aorta. No pneumothorax or pleural effusion. No pulmonary edema. Surgical clips in the right axilla. Degenerative changes of the spine. Procedure Note Kike Rainey MD - 05/09/2025 PROCEDURE: PA and lateral radiographs of the chest. HISTORY: chest pain. COMPARISON: 04/28/2025. FINDINGS: Elevated right hemidiaphragm with compression atelectasis at the rightbase. Atherosclerotic calcification of the aorta. No pneumothorax orpleural effusion. No pulmonary edema. Surgical clips in the rightaxilla. Degenerative changes of the spine. IMPRESSION: No acute findings. -------- FINAL REPORT -------- Dictated By: Kike Rainey Dictated Date: 05/09/2025 08:16 ET Assigned Physician: Kike Rainey Reviewed and Electronically Signed By: Kike Rainey Signed Date: 05/09/2025 08:17 ET Workstation ID: [id number] Transcribed By: Self Edit Transcribed Date: 05/09/2025 08:16 ET us Elpidio Peacock MD IMG XR PROCEDURES Final Result * Troponin I high sensitivity (05/09/2025 6:21 AM EDT) Only the most recent of2 resultswithin the time period is included. [facility] High Sensitivity Troponin I 5 <=54 ng/L LAB CHEMISTRY METHOD 05/09/2025 7:[address] [facility] Blood Venous blood specimen / Unknown Venipuncture / Unknown 05/09/2025 6:21 AM EDT 05/09/2025 6:[address] [facility] - 05/09/2025 7:05 AM EDT High levels of biotin in samples may falsely decrease hsTroponin values. Use caution when interpreting hsTroponin results in patients taking biotin who exhibit renal impairment (eGFR <60) or in patients taking more than 20 mg/day of biotin. us Elpidio Peacock MD LAB BLOOD ORDERABLES Final Resu lt Performing Organization Address [facility] de Phone Number [facility] [address] [place] [address], [place] [phone] * APTT (05/09/2025 6:21 AM EDT) [facility] aPTT 30.9 24.1 - 39.3 sec LAB COAGULATION METHOD 05/09/2025 6:[address] [facility] Blood Venous blood specimen / Unknown Venipuncture / Unknown 05/09/2025 6:21 AM EDT 05/09/2025 6:26 AM EDT Bismark Mora MD LAB BLOOD ORDERABLES Final R esult Performing Organization Address City/[facility]/ZIP Co de Phone Number [facility] [address] [place] [address], [place] [phone] * Protime-INR (05/09/2025 6:21 AM EDT) [facility] Protime 11.9 10.6 - 13.9 sec LAB COAGULATION METHOD 05/09/2025 6:[address] [facility] INR 0.9 LAB COAGULATION METHOD 05/09/2025 6:[address] [facility] Blood Venous blood specimen / Unknown Venipuncture / Unknown 05/09/2025 6:21 AM EDT 05/09/2025 6:26 AM EDT Bismark Mora MD LAB BLOOD ORDERABLES Final R esult [facility] [address] [place] [address], [place] [phone] * (ABNORMAL) Hepatic function panel (05/09/2025 5:46 AM EDT) [facility] Total Protein 5.8(L) 6.0 - 8.0 g/dL LAB CHEMISTRY METHOD 05/09/2025 8:13 AM [facility] Albumin 3.4 3.2 - 5.0 g/dL LAB CHEMISTRY METHOD 05/09/2025 8:13 AM [facility] Total Bilirubin 1.2 0.0 - 1.4 mg/dL LAB CHEMISTRY METHOD 05/09/2025 8:13 AM [facility] Bilirubin, Direct 0.3 0.0 - 0.3 mg/dL LAB CHEMISTRY METHOD 05/09/2025 8:13 AM [facility] Bilirubin, Indirect 0.9 0.0 - 1.1 mg/dL LAB CHEMISTRY METHOD 05/09/2025 8:13 AM [facility] ALT (SGPT) 21 10 - 60 unit/L LAB CHEMISTRY METHOD 05/09/2025 8:[address] [facility] AST (SGOT) 26 10 - 42 unit/L LAB CHEMISTRY METHOD 05/09/2025 8:[address] [facility] Alkaline Phosphatase 50 42 - 121 unit/L LAB CHEMISTRY METHOD 05/09/2025 8:[address] [facility] Blood Venous blood specimen / Unknown Venipuncture / Unknown 05/09/2025 5:46 AM EDT 05/09/2025 6:17 AM EDT Bismark Mora MD LAB BLOOD ORDERABLES Final R esult Performing Organization Address City/[facility]/ZIP Co de Phone Number [facility]) [facility] [address] [place] [address], [place] [phone] * ECG 12 lead (05/09/2025 5:15 AM EDT) Ventricular Rate ECG 71 BPM GEMUSE Atrial Rate 71 BPM GEMUSE P-R Interval 152 ms GEMUSE QRS Duration 76 ms GEMUSE Q-T Interval 418 ms GEMUSE QTc 454 ms GEMUSE P Wave [place] 18 degrees GEMUSE R [place] 7 degrees GEMUSE T [place] 42 degrees GEMUSE ECG Interpretation Normal sinus rhythm ST and T wave abnormality, consider anterior ischemia Abnormal ECG When compared with ECG of 17-FEB-2025 20:09, Inverted T waves have replaced nonspecific T wave abnormality in Anterior leads Confirmed by SHANTI KEMP ([id number]) on 05/09/2025 9:02:25 AM GEMUSE 05/09/2025 5:15 AM EDT 05/09/2025 9:02 AM EDT Elpidio Peacock MD ECG ORDERABLES Final Result Performing Organization Address [facility]/ZIP Co de Phone Number GEMUSE * Lactate dehydrogenase (05/05/2025 10:10 AM EDT) Pathologist [facility] LDH 228 120 - 246 unit/L LAB CHEMISTRY METHOD 05/05/2025 11:[address] [facility] Blood Venous blood specimen / Unknown Venipuncture / Unknown 05/05/2025 10:10 AM EDT 05/05/2025 10:18 AM EDT Og Acuna MD LAB BLOOD ORDERABLE S Final Result [facility] [address] [place] [address], * [facility] SCREENING DIGITAL (06/07/2024 12:29 PM EDT) Anatomical Region Laterality Modality Mammography 06/07/2024 10:2 9 AM EDT Narrative 06/07/2024 12:29 PM EDT [facility] Diagnostic Imaging Department [address] [place] [address] Patient: OLIVIA PALMA./Age/Sex: 1950 - 74 - F Unit#: [id number] Location/Status: [facility] CLI Mnemonic/Ordering Site: [facility] Ordering Physician: SOPHY KELSEY MD [facility] Screening Digital - 06/07/24 - 1047 Report Status:Signed EXAM: [facility] Screening Digital EXAM DATE AND TIME: 06/07/2024 10:47 AM HISTORY: Screening. Personal history of right breast carcinoma treated with lumpectomy in 2005 followed by radiation treatment. There is also a personal history of endometrial carcinoma and leukemia. Patient currently receiving chemotherapy for leukemia. COMPARISON: 08/20/22, 02/11/22, 08/10/21, 02/06/21 and earlier exams dating back to 2002. TECHNIQUE: Bilateral digital breast tomosynthesis was performed in the CC and MLO projections. Computer aided detection with [employer] SA 3D 3.1 was employed. TISSUE DENSITY: c. The breasts are heterogeneously dense, which may obscure small masses. FINDINGS: Right breast: Focal asymmetry and architectural distortion are again seen in the posterior upper outer right breast, with a large, dystrophic calcification, consistent with the lumpectomy scar. Seen only on the CC tomosynthesis views is a small asymmetry with architectural distortion in the posterior breast, straight back from the nipple. CC spot compression tomosynthesis views and full lateral tomosynthesis views are recommended for further assessment. Numerous microcalcifications are scattered throughout the breast and there are several macrocalcifications, including benign rim and secretory calcifications, unchanged. Skin thickening is again seen anteriorly. Vascular calcification is present. Left breast: No suspicious masses or developing architectural distortion are seen. Numerous microcalcifications are scattered and occur in groups, showing no significant change. Benign rim and secretory calcifications are also seen. The skin and vascularity are unremarkable. IMPRESSION: 1. Right breast asymmetry with architectural distortion, for which additional views are recommended. The patient will be called back. 2. Stable mammographic appearance of the left breast. No evidence of malignancy is seen. BI-RADS: Category 0: Incomplete - Need Additional Imaging Evaluation RECOMMENDATION(S): 1: Special mammographic view(s) needed RIGHT Dictating Physician: LILA MEDEROS MD Electronically Signed by: LILA MEDEROS MD Dic Date/Time: 06/07/24 1226 Sign date/Time: 06/07/24 1229 Procedure Note Lila Mederos MD - 08/11/2024 [facility] Diagnostic Imaging Department [address] [place] [id number] Patient: OLIVIA PALMA /Age/Sex: 1950 74 - F Unit#: [id number] Location/Status: [facility]/REG CLI Mnemonic/Ordering Site: [facility] Ordering Physician: SOPHY KELSEY MD [facility] Digital - 06/07/24 - 1047 Report Status:Signed EXAM: [facility]ening Digital EXAM DATE AND TIME: 06/07/2024 10:47 AM HISTORY: Screening. Personal history of right breast carcinoma treatedwith lumpectomy in 2005 followed by radiation treatment. There is also apersonal history of endometrial carcinoma and leukemia. Patient currentlyreceiving chemotherapy for leukemia. COMPARISON: 08/20/22, 02/11/22, 08/10/21, 02/06/21 and earlier exams datingback to 2002. TECHNIQUE: Bilateral digital breast tomosynthesis was performed in the CCand MLO projections. Computer aided detection with [employer] AI 3D 3.1was employed. TISSUE DENSITY: c. The breasts are heterogeneously dense, which mayobscure small masses. FINDINGS: Right breast: Focal asymmetry and architectural distortion are again seen in theposterior upper outer right breast, with a large, dystrophic calcification,consistent with the lumpectomy scar. Seen only on the CC tomosynthesis views is a small asymmetry witharchitectural distortion in the posterior breast, straight back from the nipple. CCspot compression tomosynthesis views and full lateral tomosynthesis views are recommended for further assessment. Numerous microcalcifications are scattered throughout the breast and thereare several macrocalcifications, including benign rim and secretorycalcifications, unchanged. Skin thickening is again seen anteriorly. Vascularcalcification is present. Left breast: No suspicious masses or developing architectural distortion are seen.Numerous microcalcifications are scattered and occur in groups, showing nosignificant change. Benign rim and secretory calcifications are also seen. The skinand vascularity are unremarkable. IMPRESSION: 1. Right breast asymmetry with architectural distortion, for whichadditional views are recommended. The patient will be called back. 2. Stable mammographic appearance of the left breast. No evidence ofmalignancy is seen. BI-RADS: Category 0: Incomplete - Need Additional Imaging Evaluation RECOMMENDATION(S): 1: Special mammographic view(s) needed RIGHT Dictating Physician: LILA MEDEROS MD Electronically Signed by: LILA MEDEROS MD Dic Date/Time: 06/07/24 1226 Sign date/Time: 06/07/24 1229 us Sophy Kelsey MD IMG BI PROCEDURES Final Resu lt * Hepatitis C Screening (06/28/2023) Hepatitis C Screening Abstracted Historical Provider MD HEALTH MAINTENANCE Final Result from Last 3 Months or Most Recently Relevant to Health Maintenance Insurance MEDICARE [facility] Advance Directives Documents on File Type Date Recorded Patient Senior Clinical Research Scientist Expl anation Health Care Decision (hx) 10/22/2018 AD SMITH DIRECTIVE Health Care Decision (hx) 10/22/2018 AD SMITH DIRECTIVE Health Care Decision (hx) 10/22/2018 AD SMITH DIRECTIVE Health Care Decision (hx) 10/22/2018 AD SMITH DIRECTIVE Health Care Decision (hx) 10/22/2018 AD SMITH DIRECTIVE Health Care Decision (hx) 10/22/2018 AD SMITH DIRECTIVE Health Care Decision (hx) 10/22/2018 AD SMITH DIRECTIVE Health Care Decision (hx) 10/22/2018 AD SMITH DIRECTIVE Health Care Decision (hx) 10/22/2018 AD SMITH DIRECTIVE Health Care Decision (hx) 10/22/2018 AD SMITH DIRECTIVE Health Care Decision (hx) 10/22/2018 AD SMITH DIRECTIVE Health Care Decision (hx) 10/22/2018 AD SMITH DIRECTIVE Health Care Decision (hx) 10/22/2018 AD SMITH DIRECTIVE Health Care Decision (hx) 10/22/2018 AD SMITH DIRECTIVE Health Care Decision (hx) 10/22/2018 AD SMITH DIRECTIVE Health Care Decision (hx) 10/22/2018 AD SMITH DIRECTIVE Health Care Decision (hx) 10/22/2018 AD SMITH DIRECTIVE Health Care Decision (hx) 10/22/2018 AD SMITH DIRECTIVE Health Care Decision (hx) 10/22/2018 AD SMITH DIRECTIVE Health Care Decision (hx) 10/22/2018 AD SMITH DIRECTIVE Health Care Decision (hx) 10/22/2018 AD SMITH DIRECTIVE Health Care Decision (hx) 10/22/2018 AD SMITH DIRECTIVE Health Care Decision (hx) 10/22/2018 AD SMITH DIRECTIVE Health Care Decision (hx) 10/22/2018 AD SMITH DIRECTIVE Health Care Decision (hx) 10/22/2018 AD SMITH DIRECTIVE Health Care Decision (hx) 10/22/2018 AD SMITH DIRECTIVE Health Care Decision (hx) 10/22/2018 AD SMITH DIRECTIVE Health Care Decision (hx) 10/22/2018 AD SMITH DIRECTIVE Health Care Decision (hx) 10/22/2018 AD SMITH DIRECTIVE Health Care Decision (hx) 10/22/2018 AD SMITH DIRECTIVE Health Care Decision (hx) 10/22/2018 AD SMITH DIRECTIVE Health Care Decision (hx) 10/22/2018 AD SMITH DIRECTIVE Health Care Decision (hx) 10/22/2018 AD SMITH DIRECTIVE Health Care Decision (hx) 10/22/2018 AD SMITH DIRECTIVE Health Care Decision (hx) 10/22/2018 AD SMITH DIRECTIVE Health Care Decision (hx) 10/22/2018 AD SMITH DIRECTIVE Health Care Decision (hx) 10/22/2018 AD SMITH DIRECTIVE Health Care Decision (hx) 10/22/2018 AD SMITH DIRECTIVE Health Care Decision (hx) 10/22/2018 AD SMITH DIRECTIVE Health Care Decision (hx) 10/22/2018 AD SMITH DIRECTIVE Health Care Decision (hx) 10/22/2018 AD SMITH DIRECTIVE Health Care Decision (hx) 10/22/2018 AD SMITH DIRECTIVE Health Care Decision (hx) 10/22/2018 AD SMITH DIRECTIVE Health Care Decision (hx) 10/22/2018 AD SMITH DIRECTIVE Health Care Decision (hx) 10/22/2018 AD SMITH DIRECTIVE Health Care Decision (hx) 10/22/2018 AD SMITH DIRECTIVE Health Care Decision (hx) 10/22/2018 AD SMITH DIRECTIVE Health Care Decision (hx) 10/22/2018 AD SMITH DIRECTIVE Health Care Decision (hx) 10/22/2018 AD SMITH DIRECTIVE Health Care Decision (hx) 10/22/2018 AD SMITH DIRECTIVE Health Care Decision (hx) 10/22/2018 AD SMITH DIRECTIVE Health Care Decision (hx) 10/22/2018 AD SMITH DIRECTIVE Health Care Decision (hx) 10/22/2018 AD SMITH DIRECTIVE Health Care Decision (hx) 10/22/2018 AD SMITH DIRECTIVE Health Care Decision (hx) 10/22/2018 AD SMITH DIRECTIVE Health Care Decision (hx) 10/22/2018 AD SMITH DIRECTIVE Health Care Decision (hx) 10/22/2018 AD SMITH DIRECTIVE Health Care Decision (hx) 10/22/2018 AD SMITH DIRECTIVE Health Care Decision (hx) 10/22/2018 AD SMITH DIRECTIVE Health Care Decision (hx) 10/22/2018 AD SMITH DIRECTIVE Health Care Decision (hx) 10/22/2018 AD SMITH DIRECTIVE Health Care Decision (hx) 10/22/2018 AD SMITH DIRECTIVE Health Care Decision (hx) 10/22/2018 AD SMITH DIRECTIVE Health Care Decision (hx) 10/22/2018 AD SMITH DIRECTIVE Health Care Decision (hx) 10/22/2018 AD SMITH DIRECTIVE Health Care Decision (hx) 10/22/2018 AD SMITH DIRECTIVE Health Care Decision (hx) 10/22/2018 AD SMITH DIRECTIVE Health Care Decision (hx) 10/22/2018 AD SMITH DIRECTIVE Health Care Decision (hx) 10/22/2018 AD SMITH DIRECTIVE Health Care Decision (hx) 10/22/2018 AD SMITH DIRECTIVE Health Care Decision (hx) 10/22/2018 AD SMITH DIRECTIVE Health Care Decision (hx) 10/22/2018 AD SMITH DIRECTIVE Health Care Decision (hx) 10/22/2018 AD SMITH DIRECTIVE Health Care Decision (hx) 10/22/2018 AD SMITH DIRECTIVE Health Care Decision (hx) 10/22/2018 AD SMITH DIRECTIVE Health Care Decision (hx) 10/22/2018 AD SMITH DIRECTIVE Health Care Decision (hx) 10/22/2018 AD SMITH DIRECTIVE Health Care Decision (hx) 10/22/2018 AD SMITH DIRECTIVE Health Care Decision (hx) 10/22/2018 AD SMITH DIRECTIVE Health Care Decision (hx) 10/22/2018 AD SMITH DIRECTIVE Health Care Decision (hx) 10/22/2018 AD SMITH DIRECTIVE Health Care Decision (hx) 10/22/2018 AD SMITH DIRECTIVE Health Care Decision (hx) 10/22/2018 AD SMITH DIRECTIVE Health Care Decision (hx) 10/22/2018 AD SMITH DIRECTIVE Health Care Decision (hx) 10/22/2018 AD SMITH DIRECTIVE Health Care Decision (hx) 10/22/2018 AD SMITH DIRECTIVE Health Care Decision (hx) 10/22/2018 AD SMITH DIRECTIVE Health Care Decision (hx) 10/22/2018 AD SMITH DIRECTIVE Health Care Decision (hx) 10/22/2018 AD SMITH DIRECTIVE Health Care Decision (hx) 10/22/2018 AD SMITH DIRECTIVE Health Care Decision (hx) 10/22/2018 AD SMITH DIRECTIVE Health Care Decision (hx) 10/22/2018 AD SMITH DIRECTIVE Health Care Decision (hx) 10/22/2018 AD SMITH DIRECTIVE Health Care Decision (hx) 10/22/2018 AD SMITH DIRECTIVE Health Care Decision (hx) 10/22/2018 AD SMITH DIRECTIVE * No CPR/Do Not Intubate (Latest Code Status on File) Date Activated Date Inactivated Comments 05/09/2025 9:32 AM 05/10/2025 7:[address] atus was ascertained in the following way: Code status discussion: discussion with healthcare sales service representative To update the patient's code status, place a code status order. Do not modify or discontinue any currently active code status orders. * Full Code - Default Date Activated Date Inactivated Comments 02/16/2025 8:02 PM 02/18/2025 5:17 PM This is orde r is used when code status has not been discussed with the patient, or code status is otherwise unknown/unconfirmed To update the patient's code status, place a code status order. Do not modify or discontinue any currently active code status orders. Care Teams Knitting Machine Fixer Head Relationship Specialty Start Date End Date Sophy Kelsey MD [address] [place] [address] PCP - General Internal Medicine 11/18/24
--- OUTSIDE RECORDS SUMMARY | 2025-07-14 13:01 | XMS_ITS | Encounter Summary ---
Author Organization [facility] Address [address] [place] [address] Care Team Providers Care Drone Operator Name Role Phone Sophy Calix MD Primary Care Provider [phone] Encounter Details Date Type Department Care Team (Late st Contact Info) Description 05/12/2025 Lab Requisition [facility] - Main Lab [address] [facility] [place] [address] Sabine Tello PA [address] [place] [id number] Encounter for other general examination Social History [...] Procedure Name Priority Date/Time Associated Diagnosis Comments VITAMIN B12 AND FOLATE Routine 05/12/2025 6:30 AM EDT Encounter for other general examination THYROID STIMULATING HORMONE Routine 05/12/2025 6:30 AM EDT Encounter for other general examination CREATINE KINASE Routine 05/12/2025 6:30 AM EDT Encounter for other general examination CORTISOL Routine 05/12/2025 6:30 AM EDT Encounter for other general examination documented in this encounter Results * Creatine kinase (05/12/2025 6:30 AM EDT) [facility] Total CK 29 22 - 269 unit/L LAB CHEMISTRY METHOD 05/12/2025 11:04 AM EDT [facility] Blood Venous blood specimen / Unknown 05/12/2025 6:30 AM EDT 05/12/2025 11:04 AM EDT us Sabine DAVIS LAB BLOOD ORDERABLES Final Re sult Performing Organization Address [facility]/ZIP Co de Phone Number [facility] [address] [place] [address], [place] [phone] * Cortisol (05/12/2025 6:30 AM EDT) [facility] Cortisol 11.9 mcg/dL LAB CHEMISTRY METHOD 05/12/2025 1:10 PM EDT [facility] Blood Venous blood specimen / Unknown 05/12/2025 6:30 AM EDT 05/12/2025 11:04 AM EDT Narrative [facility] - 05/12/2025 1:10 PM EDT CORTISOL REFERENCE RANGE 8 AM SPEC: 5.0-23.0 mcg/dL 4 PM SPEC: 3.0-16.0 mcg/dL 8 PM SPEC: <5.0 mcg/dL us Sabine DAVIS LAB BLOOD ORDERABLES Final Re sult [facility] [address] [place] [address], [place] [phone] * (ABNORMAL) Vitamin B12 and folate (05/12/2025 6:30 AM EDT) [facility] Vitamin B-12 >2,000(H) 250 - 900 pcg/mL LAB CHEMISTRY METHOD 05/12/2025 11:35 AM EDT [facility] Folate 17.6(H) 2.8 - 17.0 ng/ml LAB CHEMISTRY METHOD 05/12/2025 11:35 AM EDT [facility] Blood Venous blood specimen / Unknown 05/12/2025 6:30 AM EDT 05/12/2025 11:04 AM EDT Sabine DAVIS LAB BLOOD ORDERABLES Final Re sult Performing Organization Address City/[facility]/ZIP Co de Phone Number [facility] [address] [place] [address], [place] [phone] * (ABNORMAL) Thyroid stimulating hormone (05/12/2025 6:30 AM EDT) TSH 4.36(H) 0.40 - 4.00 mcIU/mL LAB CHEMISTRY METHOD 05/12/2025 1:10 PM EDT [facility] Blood Venous blood specimen / Unknown 05/12/2025 6:30 AM EDT 05/12/2025 11:04 AM EDT Sabine DAVIS LAB BLOOD ORDERABLES Final Re sult Performing Organization Address City/[facility]/ZIP Co de Phone Number [facility] [address] [place] [address], [place] [phone] documented in this encounter Visit Diagnoses Diagnosis Encounter for other general examination documented in this encounter Care Teams Drone Operator Relationship Specialty Start Date End Date Sophy Calix MD [address] [place] [address] PCP - General Internal Medicine 11/18/24 documented as of this encounter
--- OUTSIDE RECORDS SUMMARY | 2025-07-14 13:01 | XMS_ITS | Encounter Summary ---
Author Organization [facility] Address [address] [place] [address] Care Team Providers Care Celery Stripper Name Role Phone Sophy Calix MD Primary Care Provider [phone] Encounter Details Date Type Department Care Team (Late st Contact Info) Description 05/11/2025 Lab Requisition [facility] - Main Lab [address] [facility] [place] [address] Felipe Blount PA [address] [facility] [address] [place] [address] Encounter for other general examination Social History [...] Diagnosis Comments CBC WITH AUTO DIFFERENTIAL Routine 05/11/2025 6:03 AM EDT Encounter for other general examination CBC AND DIFFERENTIAL Routine 05/11/2025 6:03 AM EDT Encounter for other general examination MAGNESIUM Routine 05/11/2025 6:03 AM EDT Encounter for other general examination COMPREHENSIVE METABOLIC PANEL Routine 05/11/2025 6:03 AM EDT Encounter for other general examination documented in this encounter Results * (ABNORMAL) CBC auto differential (05/11/2025 6:03 AM EDT) [facility] WBC 4.9 4.8 - 10.8 K/mcL LAB HEMETOLOGY METHOD 05/11/2025 11:11 AM [facility] RBC 3.60(L) 3.80 - 4.80 M/mcL LAB HEMETOLOGY METHOD 05/11/2025 11:11 AM [facility] Hemoglobin 11.1(L) 11.5 - 16.0 g/dL LAB HEMETOLOGY METHOD 05/11/2025 11:11 AM [facility] Hematocrit 33.2(L) 35.0 - 47.0 % LAB HEMETOLOGY METHOD 05/11/2025 11:11 AM [facility] MCV 93.5 79.0 - 98.0 FL LAB HEMETOLOGY METHOD 05/11/2025 11:11 AM [facility] MCH 31.3 27.0 - 32.0 pcg LAB HEMETOLOGY METHOD 05/11/2025 11:11 AM [facility] MCHC 33.4 32.0 - 37.0 g/dL LAB HEMETOLOGY METHOD 05/11/2025 11:11 AM [facility] RDW 16.0(H) 11.0 - 15.0 % LAB HEMETOLOGY METHOD 05/11/2025 11:11 AM [facility] Platelets 111(L) 130 - 400 K/mcL LAB HEMETOLOGY METHOD 05/11/2025 11:11 AM [facility] MPV 10.2 7.0 - 11.0 FL LAB HEMETOLOGY METHOD 05/11/2025 11:11 AM [facility] NRBC 0.0 <1.0 % LAB HEMETOLOGY METHOD 05/11/2025 11:11 AM [facility] NRBC Absolute 0.00 <0.10 K/mcL LAB HEMETOLOGY METHOD 05/11/2025 11:11 AM [facility] Neutrophils Relative 87.2 % LAB HEMETOLOGY METHOD 05/11/2025 11:11 AM [facility] Lymphocytes Relative 6.6 % LAB HEMETOLOGY METHOD 05/11/2025 11:11 AM [facility] Monocytes Relative 5.4 % LAB HEMETOLOGY METHOD 05/11/2025 11:11 AM [facility] Eosinophils Relative 0.0 % LAB HEMETOLOGY METHOD 05/11/2025 11:11 AM [facility] Basophils Relative 0.0 % LAB HEMETOLOGY METHOD 05/11/2025 11:11 AM [facility] Immature Granulocytes Relative 0.8 % LAB HEMETOLOGY METHOD 05/11/2025 11:11 AM [facility] Neutrophils Absolute 4.23 1.50 - 7.00 K/mcL LAB HEMETOLOGY METHOD 05/11/2025 11:11 AM [facility] Lymphocytes Absolute 0.32(L) 1.00 - 5.00 K/mcL LAB HEMETOLOGY METHOD 05/11/2025 11:11 AM [facility] Monocytes Absolute 0.26 0.20 - 1.00 K/mcL LAB HEMETOLOGY METHOD 05/11/2025 11:11 AM [facility] Eosinophils Absolute 0.00 0.00 - 0.50 K/mcL LAB HEMETOLOGY METHOD 05/11/2025 11:11 AM [facility] Basophils Absolute 0.00 0.00 - 0.20 K/mcL LAB HEMETOLOGY METHOD 05/11/2025 11:11 AM EDT [facility] Immature Granulocytes Absolute 0.04(H) 0.00 - 0.03 K/mcL LAB HEMETOLOGY METHOD 05/11/2025 11:11 AM EDT [facility] Blood Venous blood specimen / Unknown Venipuncture / Unknown 05/11/2025 6:03 AM EDT 05/11/2025 10:18 AM EDT Felipe DAVIS LAB BLOOD ORDERABLES Final R esult [facility] [address] [place] [address], [place] [phone] * Magnesium (05/11/2025 6:03 AM EDT) Magnesium 2.2 1.9 - 2.6 mg/dL LAB CHEMISTRY METHOD 05/11/2025 11:33 AM EDT [facility] Blood Venous blood specimen / Unknown Venipuncture / Unknown 05/11/2025 6:03 AM EDT 05/11/2025 10:18 AM EDT Felipe DAVIS LAB BLOOD ORDERABLES Final R esult [facility] [address] [place] [address], [place] [phone] * (ABNORMAL) Comprehensive metabolic panel (05/11/2025 6:03 AM EDT) Sodium 137 133 - 145 mmol/L LAB CHEMISTRY METHOD 05/11/2025 11:51 AM EDT [facility] Potassium 3.5 3.5 - 5.5 mmol/L LAB CHEMISTRY METHOD 05/11/2025 11:51 AM EDT [facility] Chloride 106 96 - 110 mmol/L LAB CHEMISTRY METHOD 05/11/2025 11:51 AM [facility] CO2 20(L) 21 - 32 mmol/L LAB CHEMISTRY METHOD 05/11/2025 11:51 AM [facility] Anion Gap 11 3 - 11 LAB CHEMISTRY METHOD 05/11/2025 11:51 AM [facility] Glucose 95 70 - 100 mg/dL LAB CHEMISTRY METHOD 05/11/2025 11:51 AM [facility] BUN 21 5 - 25 mg/dL LAB CHEMISTRY METHOD 05/11/2025 11:51 AM [facility] Creatinine 1.15(H) 0.50 - 1.10 mg/dL LAB CHEMISTRY METHOD 05/11/2025 11:51 AM [facility] eGFR 50(L) >=60 mL/min/1. 73m2 LAB CHEMISTRY METHOD 05/11/2025 11:51 AM [facility] Comment:Calculation based on the Chronic Kidney Disease Epidemiology Collaboration (CKD-EPI) equation refit without adjustment for race. BUN/Creatinine Ratio 18.3 LAB CHEMISTRY METHOD 05/11/2025 11:51 AM [facility] Calcium 8.4(L) 8.5 - 10.5 mg/dL LAB CHEMISTRY METHOD 05/11/2025 11:51 AM [facility] AST (SGOT) 17 10 - 42 unit/L LAB CHEMISTRY METHOD 05/11/2025 11:51 AM [facility] ALT (SGPT) 21 10 - 60 unit/L LAB CHEMISTRY METHOD 05/11/2025 11:51 AM [facility] Alkaline Phosphatase 47 42 - 121 unit/L LAB CHEMISTRY METHOD 05/11/2025 11:51 AM [facility] Total Protein 5.2(L) 6.0 - 8.0 g/dL LAB CHEMISTRY METHOD 05/11/2025 11:51 AM [facility] Albumin 3.1(L) 3.2 - 5.0 g/dL LAB CHEMISTRY METHOD 05/11/2025 11:51 AM EDT [facility] Total Bilirubin 1.0 0.0 - 1.4 mg/dL LAB CHEMISTRY METHOD 05/11/2025 11:51 AM EDT [facility] Blood Venous blood specimen / Unknown Venipuncture / Unknown 05/11/2025 6:03 AM EDT 05/11/2025 10:18 AM EDT us Felipe DAVIS LAB BLOOD ORDERABLES Final R esult [facility] [address] [place] [address], documented in this encounter Visit Diagnoses Diagnosis Encounter for other general examination documented in this encounter Care Teams Celery Stripper Relationship Specialty Start Date End Date Sophy Calix MD [address] [place] [address] PCP - General Internal Medicine 11/18/24 documented as of this encounter
== END 2025-07-14 10:53 | disposition home or self-care (01) ==
LOC: HO.HAP 10:52
PROVIDERS: Visit Provider Internal Medicine
DX: Z46.1 Encounter for fitting and adjustment of hearing aid (principal); H90.A22 Sensorineural hearing loss, unilateral, left ear, with restricted hearing on the contralateral side; H90.A31 Mixed conductive and sensorineural hearing loss, unilateral, right ear with restricted hearing on the contralateral side
CPT/HCPCS: 92593; V5267